=== PATIENT | female | born 1945 | race Caucasian/White ===

== ENCOUNTER 2017-04-24 20:43 | Emergency (ER) | payer MEDICARE, OTHER ==
[~2017-04-24] VITALS: Ht 154.9 cm; Wt 61.0 kg
[~2017-04-24 20:43] MED LIST: DIOV80TA4 PO; EXEN5PEN SQ; GLUCTAB PO; LEXA20TA PO; RANI150 PO; SYNT137T PO
[2017-04-24 20:59] VITALS: BP 164/99; PULSE 98; RESP 18; TEMP 98; O2SAT 95
[2017-04-24] MEDS ORDERED: TRAM50TA PO (21:15)
[2017-04-24] MEDS ORDERED: MEDR5TAB3 PO (21:15)
[2017-04-24] MEDS ORDERED: OMEP20TA PO (21:15)
[2017-04-24] MEDS ORDERED: LEVO75TA3 PO (21:15)
[2017-04-24] MEDS ORDERED: SODIUM CHLOR 0.9% 1000 ML INJ 1,000 ML IV ONE (21:15)
[2017-04-24] MEDS ORDERED: ENAL20TA PO (21:15)
[2017-04-24] MEDS ORDERED: diphenhydrAMINE HCL 50 MG/ML VIAL IV PUSH ONE (21:15)
[2017-04-24] MEDS ORDERED: PROCHLORPERAZINE INJ 10 MG/2 ML VIAL IV PUSH ONE (21:15)
[2017-04-24] MEDS ORDERED: KETOROLAC TROMETHAMINE 30 MG/ML (IVP) VIAL IV PUSH ONE (21:15)
--- NOTE | 2017-04-24 21:43 | RADRPT ---
EXAM DATE/TIME: 04/24/2017 21:27 [facility] COMPARISON: No previous studies available for comparison. INDICATIONS : Cephalgia x1 week. RADIATION DOSE: 32.88 CTDIvol (mGy) MEDICAL HISTORY : Hypertension. Diabetes mellitus type 2. Gastroesophageal reflux disease.Thyroid cancer. SURGICAL HISTORY : Appendectomy. Cholecystectomy.Tonsillectomy. ENCOUNTER: Initial ACUITY: 1 week PAIN SCALE: 10/10 LOCATION: cranial TECHNIQUE: Multiple contiguous axial images were obtained of the head. Using automated exposure control and adj ustment of the mA and/or kV according to patient size, radiation dose was kept as low as reasonably a chievable to obtain optimal diagnostic quality images. FINDINGS: CEREBRUM: The ventricles are normal for age. No evidence of midline shift, mass lesion, hemorrhage or acute in farction. No extra-axial fluid collections are seen. POSTERIOR FOSSA: The cerebellum and brainstem are intact. The 4th ventricle is midline. The cerebellopontine angle i s unremarkable. EXTRACRANIAL: The visualized portion of the orbits is intact. SKULL: The calvaria is intact. No evidence of skull fracture. CONCLUSION: Negative noncontrast head CT. Grey Forbes MD on April 24, 2017 at 21:41 Board Certified Radiologist. This report was verified electronically.
[2017-04-24 21:44] LABS: AUTOMATED NEUTROPHIL # 2.4 TH/MM3 (1.8-7.7); BASOPHIL % 0.4 % (0.0-2.0); EOSINOPHIL % 0.3 % (0.0-4.0); HEMATOCRIT 43.3 % (35.0-46.0); HEMO FLAGS DIFF FINAL; LYMPH % 44.7 % (9.0-44.0); LYMPHOCYTE # 2.6 TH/MM3 (1.0-4.8); MEAN CELL VOLUME 83.8 FL (80.0-100.0); MEAN CORPUSCULAR HEMOGLOBIN 27.8 PG (27.0-34.0); MEAN CORPUSCULAR HGB CONC 33.2 % (32.0-36.0); MONO % 12.4 % (0.0-8.0); NEUT % 42.2 % (16.0-70.0); PLATELET COUNT 187 TH/MM3 (150-450); RED BLOOD COUNT 5.17 MIL/MM3 (4.00-5.30); RED CELL DISTRIBUTION WIDTH 13.7 % (11.6-17.2); WHITE BLOOD COUNT 5.8 TH/MM3 (4.0-11.0)
[2017-04-24 21:57] LABS: ANION GAP 8 MEQ/L (5-15); AST (GOT) 4 U/L (15-37); BICARBONATE 29.1 MEQ/L (21.0-32.0); BLOOD UREA NITROGEN 15 MG/DL (7-18); CHLORIDE 104 MEQ/L (98-107); GLOMERULAR FILTRATION RATE 45 ML/MIN (>89); POTASSIUM 3.3 MEQ/L (3.5-5.1); SODIUM (NA) 141 MEQ/L (136-145)
[2017-04-24 22:02] LABS: ALKALINE PHOSPHATASE 60 U/L (45-117); ALT (GPT) 15 U/L (10-53); TOTAL BILIRUBIN ADULT 0.4 MG/DL (0.2-1.0)
[2017-04-24] MEDS ORDERED: BUTA1CAP PO (22:12)
--- NOTE | 2017-04-24 22:12 | PD ---
HPI Chief Complaint: Headache Time Seen by Provider: 21:03 Travel History International Travel<30 days: No Contact w/Intl Traveler<30days: No Traveled to known affect area: No History of Present Illness HPI Patient is a 71-year-old female who comes in complaining of a right-sided headache. She says she has history of migraines and this one is similar but worse in nature. She says it has been going on for the past week, but got worse today and she feels a stabbing pain in her right taoist. She has been taking tramadol without relief of her pain. But no vomiting. She denies any fevers. She denies any head trauma. She does report being under a lot of stress. PFSH Past Medical History Depression: Yes Cancer: Yes (THYROID) Diabetes: Yes (TYPE 2) Patient Takes Glucophage: No Diminished Hearing: No GERD: Yes Hypertension: Yes Thyroid Disease: Yes (HYPO) Tetanus Vaccination: Unknown Influenza Vaccination: No Menopausal: Yes Past Surgical History Appendectomy: Yes Cholecystectomy: Yes Tonsillectomy: Yes Social History Alcohol Use: No Tobacco Use: No Substance Use: No Allergies-Medications (Allergen,Severity, Reaction): Coded Allergies: No Known Allergies (Verified , 04/24/17) Reported Meds & Prescriptions Reported Meds & Active Scripts Active Reported Tramadol (Tramadol HCl) 50 Mg Tab 50 Mg PO Q6H PRN Omeprazole 20 Mg Tab 20 Mg PO DAILY Medroxyprogesterone Acetate 5 Mg Tab 2.5 Mg PO DAILY Start day 21 Enalapril (Enalapril Maleate) 20 Mg Tab 20 Mg PO BID Levothyroxine (Levothyroxine Sodium) 75 Mcg Tab 75 Mcg PO DAILY Review of Systems Except as stated in HPI: all other systems reviewed are Neg General / Constitutional: No: Fever, Chills HENT: Positive: Headaches Cardiovascular: No: Chest Pain or Discomfort Respiratory: No: Shortness of Breath Gastrointestinal: Positive: Nausea, No: Vomiting, Abdominal Pain Musculoskeletal: No: Edema, Pain Skin: No Rash, No Change in Pigmentation Neurologic: No: Weakness, Dizziness Physical Exam Narrative GENERAL: Awake and alert, in no acute distress. SKIN: Focused skin assessment warm/dry. HEAD: Atraumatic. Normocephalic. EYES: Pupils equal and round. No scleral icterus. Extraocular movements intact. ENT: Mucous membranes pink and moist. NECK: Trachea midline. No JVD. No meningeal signs. CARDIOVASCULAR: Regular rate and rhythm. No murmur appreciated. RESPIRATORY: No accessory muscle use. Clear to auscultation. Breath sounds equal bilaterally. GASTROINTESTINAL: Abdomen soft, non-tender, nondistended. MUSCULOSKELETAL: No obvious deformities. No clubbing. No cyanosis. No edema. NEUROLOGICAL: Awake and alert. No obvious cranial nerve deficits. Motor grossly within normal limits. Normal speech. PSYCHIATRIC: Appropriate mood and affect; insight and judgment normal. Data Data Last Documented VS Vital Signs Date Time Temp Pulse Resp B/P Pulse Ox O2 Delivery O2 Flow Rate FiO2 04/24/17 20:59 98.0 98 18 164/[address] Brain W/O Iv Contrast(Rout) (04/24/17 ) Complete Blood Count With Diff (04/24/17 21:03) Comprehensive Metabolic Panel (04/24/17 21:03) Sodium Chlor 0.9% 1000 Ml Inj (Ns 1000 M (04/24/17 21:15) Prochlorperazine Inj (Compazine Inj) (04/24/17 21:15) Diphenhydramine Inj (Benadryl Inj) (04/24/17 21:15) Ketorolac Inj (Toradol Inj) (04/24/17 21:15) Labs Laboratory Tests Test 04/24/17 21:10 White Blood Count 5.8 TH/MM3 Red Blood Count 5.17 MIL/MM3 Hemoglobin 14.4 GM/DL Hematocrit 43.3 % Mean Corpuscular Volume 83.8 FL Mean Corpuscular Hemoglobin 27.8 PG Mean Corpuscular Hemoglobin 33.2 % Concent Red Cell Distribution Width 13.7 % Platelet Count 187 TH/MM3 Mean Platelet Volume 9.1 FL Neutrophils (%) (Auto) 42.2 % Lymphocytes (%) (Auto) 44.7 % Monocytes (%) (Auto) 12.4 % Eosinophils (%) (Auto) 0.3 % Basophils (%) (Auto) 0.4 % Neutrophils # (Auto) 2.4 TH/MM3 Lymphocytes # (Auto) 2.6 TH/MM3 Monocytes # (Auto) 0.7 TH/MM3 Eosinophils # (Auto) 0.0 TH/MM3 Basophils # (Auto) 0.0 TH/MM3 CBC Comment DIFF FINAL Differential Comment Sodium Level 141 MEQ/L Potassium Level 3.3 MEQ/L Chloride Level 104 MEQ/L Carbon Dioxide Level 29.1 MEQ/L Anion Gap 8 MEQ/L Blood Urea Nitrogen 15 MG/DL Creatinine 1.18 MG/DL Estimat Glomerular Filtration 45 ML/MIN Rate Random Glucose 121 MG/DL Calcium Level 9.4 MG/DL Total Bilirubin 0.4 MG/DL Aspartate Amino Transf 4 U/L (AST/SGOT) Alanine Aminotransferase 15 U/L (ALT/SGPT) Alkaline Phosphatase 60 U/L Total Protein 7.3 GM/DL Albumin 3.9 GM/DL [facility] Medical Decision Making Medical Screen Exam Complete: Yes Emergency Medical Condition: Yes Medical Record Reviewed: Yes Differential Diagnosis Migraine versus tension headache versus dehydration versus electrolyte abnormality Narrative Course Patient is a 71-year-old female who comes in complaining of a migraine headache. Exam shows no neurologic abnormalities. IV established, labs sent. Labs show no acute abnormalities. CT head performed shows no acute abnormalities. Last [address] 04/24/17 0000 Signed Impressions: Service Date/Time: Monday, April 24, 2017 21:27 - CONCLUSION: Negative noncontrast head CT. Grey Forbes MD Patient given IV fluids, Toradol, Compazine, Benadryl. She reports almost complete resolution of her headache. She says she is comfortable going home at this time. Will be discharged with prescription for Fioricet, which she says has helped her in the past. Advised follow-up with her doctor. Advised to return to the ED as needed for any worsening symptoms. Diagnosis Primary Impression: Headache Qualified Code: R51 - Acute nonintractable headache, unspecified headache type Patient Instructions: General Instructions, Migraine Headache (ED) Additional Instructions: Take Fioricet as needed for migraines. Be careful as it may make you drowsy. Follow up with your doctor. Return to the ED as needed for any worsening symptoms. Scripts Csoleqyhil-Iahocxstjfrqb-Juacezsd (Fioricet)50-300-40 Mg Cap1 Cap PO Q4H PRN ( HEADACHE) #15 CAP Ref 0 Prov:Karey King MD 04/24/17 Disposition: 01 DISCHARGE HOME Condition: Stable Karey King MD Apr 24, 2017 22:12
== END 2017-04-24 22:24 | disposition home or self-care (01) ==
LOC: NEPD 20:43
DX: R51 Headache (principal); I10 Essential (primary) hypertension; E11.9 Type 2 diabetes mellitus without complications; Z79.899 Other long term (current) drug therapy
CPT/HCPCS: 70450; 80053; 85025; 96361; 96374; 96375; 99285; J0780; J1200; J1885; J7030

== ENCOUNTER 2017-06-02 14:41 | Observation (INO) | payer MEDICARE ==
[~2017-06-02] VITALS: Ht 154.9 cm; Wt 65.0 kg
[2017-06-02] VITALS (7 sets, daily range): BP systolic 132–170; BP diastolic 67–105; PULSE 82–90; RESP 16–24; TEMP 97.8–98.5; O2SAT 95–99
[~2017-06-02 14:41] MED LIST changes: +BUTA1CAP PO; -DIOV80TA4 PO; +ENAL20TA PO; -EXEN5PEN SQ; -GLUCTAB PO; +LEVO75TA3 PO; -LEXA20TA PO; +MEDR5TAB3 PO; +OMEP20TA PO; -RANI150 PO; -SYNT137T PO; +TRAM50TA PO
[2017-06-02] MEDS ORDERED: ONDANSETRON HCL 4 MG/2 ML VIAL IV PUSH ONE (16:00)
[2017-06-02] MEDS ORDERED: NITROGLYCERIN 0.4 MG SL 25 TABS/BTL SL ONE (16:00)
[2017-06-02] MEDS ORDERED: MORPHINE SULFATE 4 MG/ML INJ IV PUSH ONE ×3 (16:00→17:15)
[2017-06-02] MEDS ORDERED: SODIUM CHLORIDE 0.9% FLUSH 10 ML FLUSH IVF PRN (16:00)
[2017-06-02 16:25] LABS: BASOPHIL % 0.3 % (0.0-2.0); EOSINOPHIL % 0.1 % (0.0-4.0); HEMO FLAGS DIFF FINAL; LYMPH % 25.4 % (9.0-44.0); LYMPHOCYTE # 1.6 TH/MM3 (1.0-4.8); MEAN CORPUSCULAR HEMOGLOBIN 28.5 PG (27.0-34.0); MEAN CORPUSCULAR HGB CONC 33.6 % (32.0-36.0); MONO % 11.7 % (0.0-8.0); NEUT % 62.5 % (16.0-70.0); PLATELET COUNT 191 TH/MM3 (150-450); RED BLOOD COUNT 4.82 MIL/MM3 (4.00-5.30); RED CELL DISTRIBUTION WIDTH 14.2 % (11.6-17.2); WHITE BLOOD COUNT 6.5 TH/MM3 (4.0-11.0)
--- NOTE | 2017-06-02 16:34 | RADRPT ---
EXAM DATE/TIME: 06/02/2017 15:55 [facility] COMPARISON: No previous studies available for comparison. INDICATIONS : Chest pain. MEDICAL HISTORY : Hypertension. SURGICAL HISTORY : Cholecystectomy. ENCOUNTER: Initial ACUITY: 1 day PAIN SCORE: 8/10 LOCATION: Bilateral chest FINDINGS: The lungs are clear without infiltrate, nodule, or mass. There is no appreciable pleural effusion fo r technique. Heart and mediastinum are unremarkable. CONCLUSION: No acute cardiopulmonary disease. Artemio Sauceda MD on June 02, 2017 at 16:17 Board Certified Radiologist. This report was verified electronically.
[2017-06-02 16:35] LABS: APTT (PATIENT) 27.3 SEC (24.3-30.1); PROTHROMBIN TIME - PATIENT 10.8 SEC (9.8-11.6)
[2017-06-02 16:47] LABS: ALT (GPT) 13 U/L (10-53); ANION GAP 9 MEQ/L (5-15); AST (GOT) 5 U/L (15-37); BICARBONATE 29.2 MEQ/L (21.0-32.0); BLOOD UREA NITROGEN 10 MG/DL (7-18); CHLORIDE 103 MEQ/L (98-107); MAGNESIUM 1.5 MG/DL (1.5-2.5); POTASSIUM 3.4 MEQ/L (3.5-5.1); SODIUM (NA) 141 MEQ/L (136-145)
--- NOTE | 2017-06-02 16:54 | PD ---
HPI Chief Complaint: Chest Pain Time Seen by Provider: 16:48 Travel History International Travel<30 days: No Contact w/Intl Traveler<30days: No Traveled to known affect area: No History of Present Illness HPI 72-year-old female that presents to the ED for evaluation of chest pain that radiates to the back. Per patient she's had this since around 12:00 today. Patient comes by ambulance for evaluation of this. She states that the pain is severe and sharp and pressure-like. No history of this in the past. No history of heart disease. She does have a history of hypertension and per patient she is to be diabetic but not anymore. She takes no blood thinners. She was given nitroglycerin and aspirin by ambulance. She reports the pain is severe 8 out of 10. No history of aneurysms. No history of cough or runny nose. Per patient she does have diaphoresis. Denies any fevers chills or sweats. No abdominal pain. No urinary or bowel movement issues. Pain is mainly to the left side to the left back. Allergies to eggs. No family history of heart disease. No arm or leg pain. No radiation of the pain other than to the back. She does have a history of prior cancer and takes thyroid medication. PFSH Past Medical History Depression: Yes Cancer: Yes (THYROID) Cardiovascular Problems: Yes (HTN ) Diabetes: No Diminished Hearing: No GERD: Yes Hypertension: Yes Immunizations Current: Yes Thyroid Disease: Yes (HYPO) Tetanus Vaccination: Unknown Influenza Vaccination: No (ALLERGIC TO EGGS ) ?: Not Menopausal: Yes Past Surgical History Appendectomy: Yes Cholecystectomy: Yes Tonsillectomy: Yes Other Surgery: Yes (THYROIDECTOMY ) Social History Alcohol Use: No Tobacco Use: No (QUIT ) Substance Use: No Allergies-Medications (Allergen,Severity, Reaction): Coded Allergies: Egg Allergy (Verified Allergy, Unknown, 06/02/17) Reported Meds & Prescriptions Reported Meds & Active Scripts Active Fioricet (Bgrarjkghr-Gunroseshbfzw-Pdfcrtst) 50-300-40 Mg Cap 1 Cap PO Q4H PRN Reported Omeprazole 20 Mg Tab 20 Mg PO DAILY Enalapril (Enalapril Maleate) 20 Mg Tab 20 Mg PO BID Levothyroxine (Levothyroxine Sodium) 75 Mcg Tab 75 Mcg PO DAILY Review of Systems Except as stated in HPI: all other systems reviewed are Neg Physical Exam Narrative GENERAL: SKIN: Warm and dry. HEAD: Atraumatic. Normocephalic. EYES: Pupils equal and round. No scleral icterus. No injection or drainage. ENT: No nasal bleeding or discharge. Mucous membranes pink and moist. Tongue is midline. No uvula deviation. NECK: Trachea midline. No JVD. CARDIOVASCULAR: Regular rate and rhythm. No murmurs, S3, S4. Chest is not reproducible with touch. RESPIRATORY: No accessory muscle use. Clear to auscultation. Breath sounds equal bilaterally. GASTROINTESTINAL: Abdomen soft, non-tender, nondistended. Hepatic and splenic margins not palpable. MUSCULOSKELETAL: Extremities without clubbing, cyanosis, or edema. No obvious deformities. Full range of motion of the upper and lower extremities bilaterally. 2+ pulses bilaterally. NEUROLOGICAL: Awake and alert. No obvious cranial nerve deficits. Motor grossly within normal limits. Five out of 5 muscle strength in the arms and legs. Normal speech. PSYCHIATRIC: Appropriate mood and affect; insight and judgment normal. Data Data Last Documented VS Vital Signs Date Time Temp Pulse Resp B/P Pulse Ox O2 Delivery O2 Flow Rate FiO2 06/02/17 16:08 84 132/93 06/02/17 16:08 18 98 06/02/17 16:08 Room Air 06/02/17 15:52 98.5 Orders Electrocardiogram (06/02/17 ) Ckmb (Isoenzyme) Profile (06/02/17 15:54) Complete Blood Count With Diff (06/02/17 15:54) Comprehensive Metabolic Panel (06/02/17 15:54) Magnesium (Mg) (06/02/17 15:54) Prothrombin Time / Inr (Pt) (06/02/17 15:54) Act Partial Throm Time (Ptt) (06/02/17 15:54) Troponin I (06/02/17 15:54) Lipase (06/02/17 15:54) Chest, Single Ap (06/02/17 15:54) Ecg Monitoring (06/02/17 15:54) Bilateral Bp Monitoring (06/02/17 15:54) Iv Access Insert/Monitor (06/02/17 15:54) Oximetry (06/02/17 15:54) Oxygen Administration (06/02/17 15:54) Sodium Chloride 0.9% Flush (Ns Flush) (06/02/17 16:00) Nitroglycerin Sl (Nitrostat Sl) (06/02/17 16:00) Morphine Inj (Morphine Inj) (06/02/17 16:00) Ondansetron Inj (Zofran Inj) (06/02/17 16:00) Thyroid Stimulating Hormone (06/02/17 15:54) B-Type Natriuretic Peptide (06/02/17 16:10) Morphine Inj (Morphine Inj) (06/02/17 16:30) Morphine Inj (Morphine Inj) (06/02/17 17:15) Admit Order (Ed Use Only) (06/02/17 18:04) Activity Bed Rest With Brp (06/02/17 18:06) Vital Signs (Adult) Q4H (06/02/17 18:06) Cardiac Rhythm .As Directed (06/02/17 18:06) Labs Laboratory Tests Test 06/02/17 16:00 White Blood Count 6.5 TH/MM3 Red Blood Count 4.82 MIL/MM3 Hemoglobin 13.8 GM/DL Hematocrit 41.0 % Mean Corpuscular Volume 85.0 FL Mean Corpuscular Hemoglobin 28.5 PG Mean Corpuscular Hemoglobin 33.6 % Concent Red Cell Distribution Width 14.2 % Platelet Count 191 TH/MM3 Mean Platelet Volume 8.6 FL Neutrophils (%) (Auto) 62.5 % Lymphocytes (%) (Auto) 25.4 % Monocytes (%) (Auto) 11.7 % Eosinophils (%) (Auto) 0.1 % Basophils (%) (Auto) 0.3 % Neutrophils # (Auto) 4.0 TH/MM3 Lymphocytes # (Auto) 1.6 TH/MM3 Monocytes # (Auto) 0.8 TH/MM3 Eosinophils # (Auto) 0.0 TH/MM3 Basophils # (Auto) 0.0 TH/MM3 CBC Comment DIFF FINAL Differential Comment Prothrombin Time 10.8 SEC Prothromb Time International 1.0 RATIO Ratio Activated Partial 27.3 SEC Thromboplast Time Sodium Level 141 MEQ/L Potassium Level 3.4 MEQ/L Chloride Level 103 MEQ/L Carbon Dioxide Level 29.2 MEQ/L Anion Gap 9 MEQ/L Blood Urea Nitrogen 10 MG/DL Creatinine 1.06 MG/DL Estimat Glomerular Filtration 51 ML/MIN Rate Random Glucose 92 MG/DL Calcium Level 9.4 MG/DL Magnesium Level 1.5 MG/DL Total Bilirubin 0.4 MG/DL Aspartate Amino Transf 5 U/L (AST/SGOT) Alanine Aminotransferase 13 U/L (ALT/SGPT) Alkaline Phosphatase 71 U/L Total Creatine Kinase 24 U/L Troponin I LESS THAN 0.02 NG/ML B-Type Natriuretic Peptide 16 PG/ML Total Protein 7.4 GM/DL Albumin 4.0 GM/DL Lipase 90 U/L Thyroid Stimulating Hormone 5.710 uIU/ML 3rd Gen [facility] Medical Decision Making Medical Screen Exam Complete: Yes Emergency Medical Condition: Yes Medical Record Reviewed: Yes Interpretation(s) CBC Diagram 06/02/17 16:00 Last Impressions Chest X-Ray 06/02/17 1554 Signed Impressions: Service Date/Time: Monday, June 02, 2017 15:55 - CONCLUSION: No acute cardiopulmonary disease. Artemio Sauceda MD EKG shows sinus rhythm with no sign of acute ischemia or arrhythmia. Read by me and attending. BMP Diagram 06/02/17 16:00 LFTs and lipase within normal limits. Coags within normal limits. Differential Diagnosis Chest pain versus atypical chest pain versus ACS versus pneumonia versus gastritis versus pancreatitis versus anxiety Narrative Course 72-year-old female that presents to the ED for evaluation of chest pain. Patient was properly examined and was found to have signs and symptoms of unclear etiology. Concern for cardiac disease. Labs and imaging ordered. Labs and imaging showed no sign of acute disease. Patient was given morphine with some relief. Unclear etiology of the chest pain but there is definite concern for ACS. Patient has no history of ACS in the past. She is had a stress test but this was done years ago. She does have risk factors including high blood pressure, diabetes and age. Case discussed in my attending who agrees with plan. Patient admitted to the chest pain center for further chest pain workup. Diagnosis Primary Impression: Chest pain in adult Admitting Information Admitting Physician Requests: Observation Julio Magdaleno Jun 02, 2017 16:54
[2017-06-02 16:57] LABS: ALKALINE PHOSPHATASE 71 U/L (45-117); GLOMERULAR FILTRATION RATE 51 ML/MIN (>89); TOTAL BILIRUBIN ADULT 0.4 MG/DL (0.2-1.0)
[2017-06-02 17:02] LABS: CREATINE KINASE 24 U/L (26-192)
[2017-06-02] MEDS ORDERED: ACETAMINOPHEN 500 MG CPLT PO PRN (18:15)
[2017-06-02] MEDS ORDERED: ACETAMINOPHEN/HYDROcodone 325 MG/7.5 MG TAB PO PRN (18:15)
[2017-06-02] MEDS ORDERED: MORPHINE SULFATE 4 MG/ML INJ IV PRN (18:15)
[2017-06-02] MEDS ORDERED: SODIUM CHLORIDE 0.9% FLUSH 10 ML FLUSH IV FLUSH PRN (18:15)
[2017-06-02] MEDS ORDERED: MORPHINE SULFATE 8 MG/ML INJ IV PUSH PRN (18:45)
[2017-06-02 20:21] LABS: CREATINE KINASE 23 U/L (26-192)
[2017-06-02] MEDS: SODIUM CHLORIDE 0.9% FLUSH 10 ML FLUSH IV FLUSH SCH (22:46)
[2017-06-02] MEDS: ONDANSETRON HCL 4 MG/2 ML VIAL IV PRN (22:46)
[2017-06-02 23:22] LABS: CREATINE KINASE 24 U/L (26-192)
[2017-06-03] MEDS: SODIUM CHLORIDE 0.9% FLUSH 10 ML FLUSH IV FLUSH SCH (01:00)
[2017-06-03 04:05] VITALS: BP 141/73; PULSE 86; RESP 18; TEMP 98; O2SAT 96
[2017-06-03 04:08] VITALS: PULSE 75
[2017-06-03 04:13] VITALS: PULSE 80
[2017-06-03] MEDS ORDERED: LEVOTHYROXINE SODIUM 75 MCG TAB PO SCH (08:00)
[2017-06-03] MEDS ORDERED: TRAM50TA PO (08:17)
--- NOTE | 2017-06-03 08:20 | HHI.HP ---
HPI Primary Care Physician Lucille Turner Chief Complaint Chest pain History of Present Illness 72-year-old female with history of hypertension, hypothyroidism, migraines, GERD , and history diabetes type 2 presents to emergency room for further evaluation of chest pain. Onset yesterday at noon. Location substernal. Characterized as someone sitting on her chest. Radition of a stabbing pain to her back. Duration has been constant waxing and waning in intensity. Associated symptoms included nausea and feeling short of breath. No particular movement, position, or deep breathing makes pain better or worse. Denies similar pain in the past. No known precipitating factors. Relieving factors pain medication helped "somewhat but pain has never gone completely away." Last time eating prior to chest pain was 9 AM. Review of Systems General: No fatigue,weakness, fever, chills, or recent illness. Has been in her general state of health. HEENT: History of migraines, current complains of a headache after dose of nitro given in ED. She has been on multiple migraine medications and medications helped for only a short time. Currently she takes Ultram 50 mg every 6 hours as needed for migraine. No vision changes, nasal congestion, or drainage. History of GERD, report sometimes acid reflux so bad she has dysphasia lasting the whole day. CV: As stated above. Continues to have chest pressure/heaviness. No palpitations, intermittent leg pain, or dizziness. No personal history of coronary artery disease. RESP: No SOB, cough, wheeze, recent URI, or history of asthma. Formal smoker, quit 2004. GI: Current nausea, reports unsure if nausea from pain medication given or current headache. No vomiting, bowel changes, diarrhea, constipation, pain, distention, melena, or blood in the stool. : No dysuria, urgency, frequency, frequent UTIs, or history of kidney stones EXT: No lower leg edema, no paraesthesias MS: No discomfort or change in ROM NEURO: No difficulty with balance, LOC, motor/sensory deficits PSYCH: No anxiety, depression, or situational stress. SKIN: No rashes, no concerning lesions. Past Family Social History Allergies: Coded Allergies: Egg Allergy (Verified Allergy, Unknown, 06/02/17) Past Medical History Hypothyroidism, hypertension, migraines, type 2 diabetes(diet controlled), GERD Past Surgical History Appendectomy, cholecystectomy, thyroidectomy, parathyroidectomy, tonsillectomy, cataracts Reported Medications Active Reported Tramadol (Tramadol HCl) 50 Mg Tab 50 Mg PO Q6HR Omeprazole 20 Mg Tab 20 Mg PO DAILY Enalapril (Enalapril Maleate) 20 Mg Tab 20 Mg PO BID Levothyroxine (Levothyroxine Sodium) 75 Mcg Tab 75 Mcg PO DAILY Active Ordered Medications Current Medications Medications (Trade) Dose Ordered Sig/Kirit Route Start Time Stop Time Status Last Admin (Tylenol) 500 mg Q4H PRN PO 06/02/17 18:15 (Gardena 7.5-325 Mg) 1 tab Q4H PRN PO 06/02/17 18:15 06/02/17 23:46 (Zofran Inj) 4 mg Q6H PRN IV 06/02/17 18:15 06/02/17 22:46 (Morphine Inj) 2 mg Q4H PRN IV PUSH 06/02/17 18:45 (Synthroid) 75 mcg DAILY@06 PO 06/03/17 08:00 06/03/17 08:18 Family History Unknown Social History Known hypertension and diabetes. Diabetes currently diet controlled. No known hyperlipidemia. Former smoker, quit 2004 (half pack/daily). Rare social alcohol. Denies recreational drug use. Retired. Occasionally volunteers with hospice. Endorses sedentary lifestyle. Past cardiac testing No recent cardiac testing. Chemical stress test "years ago" for routine cardiac workup with . Chemical test unremarkable. Physical Exam Vital Signs Vital Signs Date Time Temp Pulse Resp B/P Pulse Ox O2 Delivery O2 Flow Rate FiO2 06/03/17 04:13 80 06/03/17 04:08 75 06/03/17 04:05 98.0 86 18 141/73 96 06/03/17 01:00 16 06/02/17 23:51 97.8 86 16 170/83 97 06/02/17 21:08 98.2 84 18 151/67 98 06/02/17 20:21 86 20 136/89 98 Room Air 06/02/17 19:42 95 06/02/17 19:00 88 24 145/105 99 Room Air 06/02/17 16:08 84 132/93 06/02/17 16:08 82 18 132/93 98 06/02/17 16:08 96 Room Air 06/02/17 15:52 100 Room Air 06/02/17 15:52 98.5 90 21 161/94 97 06/02/17 15:52 90 161/94 Physical Exam GENERAL: Alert WN, WD, NAD, pleasant, female HEAD: NC, AT EYES: Sclera clear, conjunctiva without injection, pupils equal and round ENT: Mucous membranes pink and moist NECK: Supple, no masses, trachea midline CV: RRR, without murmur, rub, gallop, no JVD, S1-S2 no S3-S4. No carotid bruits. RESP: Clear lungs throughout bilateral, no crackles, wheeze, rhonchi, symmetrical chest rise, nonlabored, able to speak in full sentences ABD: Soft, NT, ND, no masses, positive bowel tones BACK: No CVAT, no scoliosis EXT: Pulses +24, no dependent edema MS: Normal tone 4 extremities, nontender, no obvious deformities, full range of motion NEURO: CN II through CN XII grossly intact, motor strength 5/5, gait WNL PSYCH: A+O 3, pleasant affect, appropriate speech, appropriate mood and affect , insight and judgment SKIN: Normal turgor, normal texture, no lesions, no rashes Laboratory Laboratory Tests Test 06/02/17 06/02/17 06/02/17 16:00 19:32 22:30 White Blood Count 6.5 Red Blood Count 4.82 Hemoglobin 13.8 Hematocrit 41.0 Mean Corpuscular Volume 85.0 Mean Corpuscular Hemoglobin 28.5 Mean Corpuscular Hemoglobin 33.6 Concent Red Cell Distribution Width 14.2 Platelet Count 191 Mean Platelet Volume 8.6 Neutrophils (%) (Auto) 62.5 Lymphocytes (%) (Auto) 25.4 Monocytes (%) (Auto) 11.7 Eosinophils (%) (Auto) 0.1 Basophils (%) (Auto) 0.3 Neutrophils # (Auto) 4.0 Lymphocytes # (Auto) 1.6 Monocytes # (Auto) 0.8 Eosinophils # (Auto) 0.0 Basophils # (Auto) 0.0 CBC Comment DIFF FINAL Differential Comment Prothrombin Time 10.8 Prothromb Time International 1.0 Ratio Activated Partial 27.3 Thromboplast Time Sodium Level 141 Potassium Level 3.4 Chloride Level 103 Carbon Dioxide Level 29.2 Anion Gap 9 Blood Urea Nitrogen 10 Creatinine 1.06 Estimat Glomerular Filtration 51 Rate Random Glucose 92 Calcium Level 9.4 Magnesium Level 1.5 Total Bilirubin 0.4 Aspartate Amino Transf 5 (AST/SGOT) Alanine Aminotransferase 13 (ALT/SGPT) Alkaline Phosphatase 71 Total Creatine Kinase 24 23 24 Troponin I LESS THAN 0.02 LESS THAN 0.02 LESS THAN 0.02 B-Type Natriuretic Peptide 16 Total Protein 7.4 Albumin 4.0 Lipase 90 Thyroid Stimulating Hormone 5.710 3rd Gen Result Diagram: 06/02/17 1600 06/02/17 1600 Imaging Last Impressions Chest X-Ray 06/02/17 1554 Signed Impressions: Service Date/Time: Friday, June 02, 2017 15:55 - CONCLUSION: No acute cardiopulmonary disease. Artemio Sauceda MD Course EKGs Normal sinus rhythm, incomplete right bundle branch block Assessment and Plan Assessment and Plan #! Atypical chest painadmitted to chest pain center. Ruled out with serial EKGs, cardiac enzymes, and monitored overnight. Seen and evaluated by Dr. Hogue. Reassurance provided, no further cardiac testing at this time. #2 Migrainecontinue Ultram x1 dose now, encouraged her to speak with her PCP regarding a referral to a neurologist and/or taking prophylactic migraine medication. #3 Hypertensioncontinue enalapril, following a low sodium diet #4 NauseaZofran 4 mg IV 1 dose now prescription for Zofran 4 mg 3 times a day when necessary for accompanied nausea with migraine headache #5 GERDcontinue omeprazole, speak with PCP regarding GI referral to evaluate intermittent dysphasia as well as current symptoms may be GI related Yamileth Lott Jun 03, 2017 08:20
[2017-06-03 08:30] VITALS: BP 161/74; PULSE 81; RESP 19; TEMP 98.6; O2SAT 95
[2017-06-03 08:37] VITALS: PULSE 92
[2017-06-03 08:38] VITALS: PULSE 89
[2017-06-03] MEDS ORDERED: traMADol HCL 50 MG TAB PO ONE (08:45)
[2017-06-03] MEDS ORDERED: PANTOPRAZOLE SOD 20 MG DELAYED RELEASE TAB PO SCH (09:00)
[2017-06-03] MEDS ORDERED: ENALAPRIL MALEATE 10 MG TAB PO SCH (09:00)
[2017-06-03] MEDS ORDERED: ONDA1TAB17 PO (09:32)
--- NOTE | 2017-06-03 09:33 | HHI.DCPOC ---
Discharge Care Plan Diagnosis: (1) Atypical chest pain (2) GERD (gastroesophageal reflux disease) (3) Migraine equivalent (4) Nausea Goals to Promote Your Health * To prevent worsening of your condition and complications * To maintain your health at the optimal level Directions to Meet Your Goals Take your medications as prescribed Follow your dietary instruction Follow activity as directed Keep your appointments as scheduled Take your immunizations and boosters as scheduled If your symptoms worsen call your PCP, if no PCP go to Urgent Care Center or Emergency Room Smoking is Dangerous to Your Health. Avoid second hand smoke Call the 24-hour hour crisis hotline for domestic abuse at Yamileth Lott Jun 03, 2017 09:33
--- NOTE | 2017-06-03 09:36 | PD.CARD.PN ---
Subjective Subjective Remarks CARDIOLOGY ATTENDING NOTE P[T REVIEWED AND EXAMINED WITH RESIDENTIAL SOLAR SALES CONSULTANT HPI: RECORDED. VERY ATYPICAL CP, CENTRAL CHEST HEAVINESS WHICH IS CONSTANT AND HAS CONTINUED FOR MANY HOURS ALTHOUGH RELIEVED BY PAIN MEDS. SHE HAS NO SOB , DIAPHORESIS OR RELATED SX OTHER THAN NAUSEA. PAIN RADIATED WITH STABBING TO HER BACK. SHE HAS HX OF GERD AND OCCASIONAL EPISODES OF DYSPHAGIA. DM, LIPIDS, THYROID AND RECURRING MIGRAINE POORLY CONTROLLED O: HEENT GAB, EOMI, BILATERAL IOL NECK NO JVD MASSES NODES OR BRUITS CHEST DEC BS WITHOUT RWR CV RSR NO GRM ABD NON TENDER ON GR EXT NO CCE LAB NEG X 3 CXR NEG EKG NEG X 3 A; HAS RO FOR ACS NON CARDIAC CP MOST LIKELY GI. P: OK TO HOME AND FU WITH PCP. ASLO SUGGEST SPECIALTY EVALUATION FOR GI AND HEADACHES. DISCUSSED WITH PT. Objective Vital Signs / I&O Vital Signs Date Time Temp Pulse Resp B/P Pulse Ox O2 Delivery O2 Flow Rate FiO2 06/03/17 04:13 80 06/03/17 04:08 75 06/03/17 04:05 98.0 86 18 141/73 96 06/03/17 01:00 16 06/02/17 23:51 97.8 86 16 170/83 97 06/02/17 21:08 98.2 84 18 151/67 98 06/02/17 20:21 86 20 136/89 98 Room Air 06/02/17 19:42 95 06/02/17 19:00 88 24 145/105 99 Room Air 06/02/17 16:08 84 132/93 06/02/17 16:08 82 18 132/93 98 06/02/17 16:08 96 Room Air 06/02/17 15:52 100 Room Air 06/02/17 15:52 98.5 90 21 161/94 97 06/02/17 15:52 90 161/94 I/O 06/02/17 06/02/17 06/02/17 06/03/17 06/03/17 06/03/17 06:59 14:59 22:59 06:59 14:59 22:59 Intake Total 240 ml Balance 240 ml Intake Oral Supplement 240 ml Laboratory Laboratory Tests Test 06/02/17 06/02/17 06/02/17 16:00 19:32 22:30 White Blood Count 6.5 TH/MM3 Red Blood Count 4.82 MIL/MM3 Hemoglobin 13.8 GM/DL Hematocrit 41.0 % Mean Corpuscular Volume 85.0 FL Mean Corpuscular Hemoglobin 28.5 PG Mean Corpuscular Hemoglobin 33.6 % Concent Red Cell Distribution Width 14.2 % Platelet Count 191 TH/MM3 Mean Platelet Volume 8.6 FL Neutrophils (%) (Auto) 62.5 % Lymphocytes (%) (Auto) 25.4 % Monocytes (%) (Auto) 11.7 % Eosinophils (%) (Auto) 0.1 % Basophils (%) (Auto) 0.3 % Neutrophils # (Auto) 4.0 TH/MM3 Lymphocytes # (Auto) 1.6 TH/MM3 Monocytes # (Auto) 0.8 TH/MM3 Eosinophils # (Auto) 0.0 TH/MM3 Basophils # (Auto) 0.0 TH/MM3 CBC Comment DIFF FINAL Differential Comment Prothrombin Time 10.8 SEC Prothromb Time International 1.0 RATIO Ratio Activated Partial 27.3 SEC Thromboplast Time Sodium Level 141 MEQ/L Potassium Level 3.4 MEQ/L Chloride Level 103 MEQ/L Carbon Dioxide Level 29.2 MEQ/L Anion Gap 9 MEQ/L Blood Urea Nitrogen 10 MG/DL Creatinine 1.06 MG/DL Estimat Glomerular Filtration 51 ML/MIN Rate Random Glucose 92 MG/DL Calcium Level 9.4 MG/DL Magnesium Level 1.5 MG/DL Total Bilirubin 0.4 MG/DL Aspartate Amino Transf 5 U/L (AST/SGOT) Alanine Aminotransferase 13 U/L (ALT/SGPT) Alkaline Phosphatase 71 U/L Total Creatine Kinase 24 U/L 23 U/L 24 U/L Troponin I LESS THAN 0.02 LESS THAN 0.02 LESS THAN 0.02 NG/ML NG/ML NG/ML B-Type Natriuretic Peptide 16 PG/ML Total Protein 7.4 GM/DL Albumin 4.0 GM/DL Lipase 90 U/L Thyroid Stimulating Hormone 5.710 uIU/ML 3rd Gen Guru Hogue MD Jun 03, 2017 09:35
--- NOTE | 2017-06-03 10:13 | EKG ---
Date Performed: 06/02/2017 Time Performed: 19:37:50 PTAGE: 72 years EKG: Sinus rhythm INCOMPLETE RIGHT BUNDLE BRANCH BLOCK NONSPECIFIC T-WAVE ABNORMALITY BORDERLINE ECG NO SIG CHANGE PREVIOUS TRACING : 06/02/2017 15.55 DOCTOR: Guru Hogue Interpretating Date/Time 06/03/2017 10:11:45
--- NOTE | 2017-06-03 10:14 | EKG ---
Date Performed: 06/02/2017 Time Performed: 15:55:34 PTAGE: 72 years EKG: Sinus rhythm INCOMPLETE RIGHT BUNDLE BRANCH BLOCK NONSPECIFIC ST & T-WAVE ABNORMALITY BORDERLINE ECG NO SIG CALERO Ruddy PREVIOUS TRACING : 05/04/2001 14.48 DOCTOR: Guru Hogue Interpretating Date/Time 06/03/2017 10:13:09
--- NOTE | 2017-06-03 10:14 | EKG ---
Date Performed: 06/02/2017 Time Performed: 22:11:17 PTAGE: 72 years EKG: Sinus rhythm POSSIBLE RIGHT VENTRICULAR CONDUCTION DELAY BORDERLINE ECG NO SIG CHANGE PREVIOUS TRACING : 06/02/2017 19.37 DOCTOR: Guru Hogue Interpretating Date/Time 06/03/2017 10:14:15
[2017-06-03] MEDS: ONDANSETRON HCL 4 MG/2 ML VIAL IV PRN (10:40)
== END 2017-06-03 14:16 | disposition home or self-care (01) ==
LOC: NEPC 14:41 → NEDA 18:06 → NEPHCDU 20:59
PROVIDERS: ADMIT Internal Medicine Cardiovascular Disease; ATTEND Internal Medicine Cardiovascular Disease
DX: R07.89 Other chest pain (principal); G43.909 Migraine, unspecified, not intractable, without status migrainosus; I10 Essential (primary) hypertension; R11.0 Nausea; K21.9 Gastro-esophageal reflux disease without esophagitis; E03.9 Hypothyroidism, unspecified; E11.9 Type 2 diabetes mellitus without complications; R06.02 Shortness of breath; I45.10 Unspecified right bundle-branch block; R13.10 Dysphagia, unspecified; R61 Generalized hyperhidrosis; F32.9 Major depressive disorder, single episode, unspecified; Z79.899 Other long term (current) drug therapy; Z87.891 Personal history of nicotine dependence
CPT/HCPCS: 71010; 80053; 82550; 83690; 83735; 83880; 84443; 84484; 85025; 85610; 85730; 93005; 96374; 99285; G0378; J2270; J2405

== ENCOUNTER 2017-09-14 14:24 | Emergency (ER) | payer MEDICARE ==
[~2017-09-14] VITALS: Ht 154.9 cm; Wt 60.0 kg
[~2017-09-14 14:24] MED LIST changes: -BUTA1CAP PO; -MEDR5TAB3 PO; +ONDA1TAB17 PO
[2017-09-14 14:35] VITALS: BP 120/62; PULSE 62; RESP 16; TEMP 98.4; O2SAT 98
[2017-09-14] MEDS ORDERED: SODIUM CHLORIDE 0.9% FLUSH 10 ML FLUSH IVF PRN ×2 (14:45)
[2017-09-14 14:46] VITALS: RESP 16; O2SAT 98
[2017-09-14] MEDS ORDERED: ENAL20TA PO ×2 (14:46)
--- NOTE | 2017-09-14 14:46 | PD ---
HPI Chief Complaint: Syncope/Near-Syncope Time Seen by Provider: 14:42 Travel History International Travel<30 days: No Contact w/Intl Traveler<30days: No Traveled to known affect area: No History of Present Illness HPI Patient comes emergency Department after having a near syncopal episode while at the grocery store today. Patient was reportedly standing in line when she got lightheaded and almost passed out. Patient denies any chest pain, shortness of breath, headaches, fevers, nausea, vomiting, loss change in bowel or bladder, or being on any blood thinners. Patient reportedly was found to be hypotensive on arrival with a blood pressure of 88/66 and orthostatic on arrival by firefighters and EMS. Patient initially refused transportation however after her blood pressure Dropping when going from sitting to standing was agreeable to come in for evaluation. Patient does report a 20 pound intentional weight loss. Patient denies any symptoms currently. Patient has received almost 1 L of fluid by EMS en route. PFSH Past Medical History Depression: Yes Heart Rhythm Problems: No Cancer: Yes (THYROID) Cardiac Catheterization: No Cardiovascular Problems: Yes (HTN ) High Cholesterol: No Congestive Heart Failure: No Diabetes: No Diminished Hearing: No GERD: Yes Hypertension: Yes Immunizations Current: Yes Thyroid Disease: Yes (HYPO) Menopausal: Yes Past Surgical History Appendectomy: Yes Cholecystectomy: Yes Coronary Artery Bypass Graft: No Tonsillectomy: Yes Other Surgery: Yes (THYROIDECTOMY ) Social History Alcohol Use: No Tobacco Use: No (QUIT ) Substance Use: No Allergies-Medications (Allergen,Severity, Reaction): Coded Allergies: egg (Unverified Allergy, Unknown, 09/14/17) Reported Meds & Prescriptions Reported Meds & Active Scripts Active Reported Enalapril (Enalapril Maleate) 20 Mg Tab 40 Mg PO DAILY Levothyroxine (Levothyroxine Sodium) 75 Mcg Tab 75 Mcg PO DAILY Review of Systems Except as stated in HPI: all other systems reviewed are Neg Physical Exam Narrative GENERAL: Well-developed, well nourished, in no acute distress, and non-ill appearing. SKIN: Focused skin assessment warm and dry. HEAD: Atraumatic. Normocephalic. EYES: Pupils equal and round. EOMI. No scleral icterus. No injection or drainage. ENT: No nasal bleeding or discharge. Mucous membranes pink and moist. NECK: Trachea midline. No JVD. Supple. No nuclear rigidity. CARDIOVASCULAR: Regular rate and rhythm. No murmur appreciated. RESPIRATORY: No accessory muscle use. No respiratory distress. Clear to auscultation. Breath sounds equal bilaterally. GASTROINTESTINAL: Abdomen soft, non-tender, nondistended, and no guarding. Hepatic and splenic margins not palpable. Normal bowel sounds 4. No pulsatile mass. MUSCULOSKELETAL: No obvious deformities. No clubbing. No cyanosis. No edema. Full range of motion. NEUROLOGICAL: Awake and alert. No obvious cranial nerve deficits. Motor grossly within normal limits. Normal speech. PSYCHIATRIC: Appropriate mood and affect; insight and judgment normal. Data Data Last Documented VS Vital Signs Date Time Temp Pulse Resp B/P (MAP) Pulse Ox O2 Delivery O2 Flow Rate FiO2 09/14/17 15:29 78 18 139/66 (90) 83 18 123/61 (81) 88 18 125/61 (82) 09/14/17 14:46 98 Room Air 09/14/17 14:35 98.4 Orders Orders Electrocardiogram (09/14/17 14:42) Basic Metabolic Panel (Bmp) (09/14/17 14:42) Complete Blood Count With Diff (09/14/17 14:42) Magnesium (Mg) (09/14/17 14:42) Ckmb (Isoenzyme) Profile (09/14/17 14:42) Troponin I (09/14/17 14:42) Act Partial Throm Time (Ptt) (09/14/17 14:42) Prothrombin Time / Inr (Pt) (09/14/17 14:42) Urinalysis - C+S If Indicated (09/14/17 14:42) Ct Brain W/O Iv Contrast(Rout) (09/14/17 14:42) Ecg Monitoring (09/14/17 14:42) Iv Access Insert/Monitor (09/14/17 14:42) Oximetry (09/14/17 14:42) Sodium Chloride 0.9% Flush (Ns Flush) (09/14/17 14:45) Orthostatic Vital Signs (09/14/17 14:42) Ed Discharge Order (09/14/17 17:24) Labs Laboratory Tests Test 09/14/17 15:06 09/14/17 16:37 White Blood Count 5.8 TH/MM3 Red Blood Count 5.55 MIL/MM3 Hemoglobin 15.5 GM/DL Hematocrit 46.9 % Mean Corpuscular Volume 84.6 FL Mean Corpuscular Hemoglobin 27.9 PG Mean Corpuscular Hemoglobin Concent 33.0 % Red Cell Distribution Width 13.3 % Platelet Count 144 TH/MM3 Mean Platelet Volume 9.8 FL Neutrophils (%) (Auto) 74.7 % Lymphocytes (%) (Auto) 17.5 % Monocytes (%) (Auto) 7.5 % Eosinophils (%) (Auto) 0.1 % Basophils (%) (Auto) 0.2 % Neutrophils # (Auto) 4.4 TH/MM3 Lymphocytes # (Auto) 1.0 TH/MM3 Monocytes # (Auto) 0.4 TH/MM3 Eosinophils # (Auto) 0.0 TH/MM3 Basophils # (Auto) 0.0 TH/MM3 CBC Comment DIFF FINAL Differential Comment Prothrombin Time 13.0 SEC Prothromb Time International Ratio 1.2 RATIO Activated Partial Thromboplast Time 26.9 SEC Blood Urea Nitrogen 14 MG/DL Creatinine 1.25 MG/DL Random Glucose 87 MG/DL Calcium Level 8.5 MG/DL Magnesium Level 1.6 MG/DL Sodium Level 139 MEQ/L Potassium Level 3.4 MEQ/L Chloride Level 106 MEQ/L Carbon Dioxide Level 18.7 MEQ/L Anion Gap 14 MEQ/L Estimat Glomerular Filtration Rate 42 ML/MIN Total Creatine Kinase 30 U/L Troponin I 0.02 NG/ML Urine Color LIGHT-YELLOW Urine Turbidity CLEAR Urine pH 6.0 Urine Specific [place] 1.008 Urine Protein TRACE mg/dL Urine Glucose (UA) NEG mg/dL Urine Ketones 80 mg/dL Urine Occult Blood NEG Urine Nitrite NEG Urine Bilirubin NEG Urine Urobilinogen LESS THAN 2.0 MG/DL Urine Leukocyte Esterase MOD Urine RBC 1 /hpf Urine WBC 3 /hpf Urine Squamous Epithelial Cells 1 /hpf Urine Hyaline Casts 3 /lpf Urine Mucus FEW /lpf Microscopic Urinalysis Comment CULT NOT INDICATED MDM Medical Decision Making Medical Screen Exam Complete: Yes Emergency Medical Condition: Yes Interpretation(s) EKG reviewed by Dr. Stein shows sinus rhythm with ventricular rate of 83. No STEMI. Differential Diagnosis Syncope, near syncope, orthostatic, acute coronary syndrome, TIA, CVA, other Narrative Course Patient presented with dizziness described best as near syncope. There was no true syncope. It appears clinically due to volume depletion. The patient denied any symptoms of chest pain, SOB/difficulty breathing, palpitations or skipped heartbeats. The patient denied and headache. The patient denied any bloody or tarry stools. The patient has no significant risk factors and no significant co- morbidities. There was no evidence to suggest neurologic or cardiac etiology or GIB. The diagnosis and findings were discussed with the patient and the patient was instructed to follow up with their primary physician. Patient in no obvious distress upon re-evaluation. All pertinent laboratory/ Radiology result(s) discussed with patient. Discussed patient with Dr. Stein prior to discharge, who is in agreement with plan of care and disposition.. Any questions/concerns in reference to patient diagnosis/ condition discussed and clarified prior to patient's discharge. Reinforced sheer importance of close follow up with patient's primary physician or primary care clinic. Instructed patient to return to ED immediately, if symptoms return/ worsen. Patient showed understanding of above instructions. Further instructions and recommendations were detailed in discharge paperwork. Patient ambulated without difficulty out of ED at discharge. Diagnosis Primary Impression: Near syncope Patient Instructions: General Instructions, Hypotension (ED), Near Syncope (ED) Additional Instructions: Follow-up with your primary care physician in one to 3 days for reevaluation and possible adjustment of your blood pressure medicine. Drink plenty of non- caffeinated and nonalcoholic fluids. Return to the emergency department if symptoms get worse. Disposition: 01 DISCHARGE HOME Condition: Stable Steve Fonseca Sep 14, 2017 14:46
[2017-09-14 15:18] LABS: AUTOMATED NEUTROPHIL # 4.4 TH/MM3 (1.8-7.7); BASOPHIL % 0.2 % (0.0-2.0); EOSINOPHIL % 0.1 % (0.0-4.0); HEMATOCRIT 46.9 % (35.0-46.0); HEMOGLOBIN 15.5 GM/DL (11.6-15.3); LYMPH % 17.5 % (9.0-44.0); MEAN CELL VOLUME 84.6 FL (80.0-100.0); MEAN CORPUSCULAR HEMOGLOBIN 27.9 PG (27.0-34.0); MEAN PLATELET VOLUME 9.8 FL (7.0-11.0); MONO % 7.5 % (0.0-8.0); MONOCYTE # 0.4 TH/MM3 (0-0.9); NEUT % 74.7 % (16.0-70.0); PLATELET COUNT 144 TH/MM3 (150-450); RED BLOOD COUNT 5.55 MIL/MM3 (4.00-5.30); RED CELL DISTRIBUTION WIDTH 13.3 % (11.6-17.2); WHITE BLOOD COUNT 5.8 TH/MM3 (4.0-11.0)
[2017-09-14 15:28] VITALS: BP 139/66; RESP 18
[2017-09-14 15:29] VITALS: BP_SYST 123; BP_SYST 125; BP_SYST 139; BP_DIAS 61; BP_DIAS 66; RESP 18
[2017-09-14 15:35] LABS: BICARBONATE 18.7 MEQ/L (21.0-32.0); CALCIUM 8.5 MG/DL (8.5-10.1); CREATININE 1.25 MG/DL (0.50-1.00); MAGNESIUM 1.6 MG/DL (1.5-2.5)
[2017-09-14 15:38] LABS: TROPONIN I 0.02 NG/ML (0.02-0.05)
[2017-09-14 15:55] LABS: INTERNATIONAL NORMALIZED RATIO 1.2 RATIO
[2017-09-14 16:56] LABS: BILIRUBIN, URINE NEG (NEG); BLOOD, URINE NEG (NEG); GLUCOSE,URINE NEG (NEG); HYALINE CAST, URINE 3 /lpf (RARE); KETONE, URINE 80 mg/dL (NEG); MUCUS URINE FEW /lpf (OCC); NITRITE,URINE NEG (NEG); SQUAMOUS EPITHELIAL CELL URINE 1 /hpf (0-5); URINE COLOR LIGHT-YELLOW (YELLW/STRAW); URINE LEUKOCYTE ESTERASE MOD (NEG)
--- NOTE | 2017-09-14 17:06 | RADRPT ---
EXAM DATE/TIME: 09/14/2017 15:04 [facility] COMPARISON: CT BRAIN W/O CONTRAST, April 24, 2017, 21:27. INDICATIONS : Syncopal episode. RADIATION DOSE: 56.35 CTDIvol (mGy) MEDICAL HISTORY : Hypertension. Gastroesophageal reflux disease. Thyroid cancer. SURGICAL HISTORY : Appendectomy. Cholecystectomy.Thyroidectomy. ENCOUNTER: Initial ACUITY: 1 day PAIN SCALE: 0/10 LOCATION: cranial TECHNIQUE: Multiple contiguous axial images were obtained of the head. Using automated exposure control and adj ustment of the mA and/or kV according to patient size, radiation dose was kept as low as reasonably a chievable to obtain optimal diagnostic quality images. DICOM format image data is available electro nically for review and comparison. FINDINGS: CEREBRUM: The ventricles are normal for age. No evidence of midline shift, mass lesion, hemorrhage or acute in farction. No extra-axial fluid collections are seen. POSTERIOR FOSSA: The cerebellum and brainstem are intact. The 4th ventricle is midline. The cerebellopontine angle i s unremarkable. EXTRACRANIAL: The visualized portion of the orbits is intact. SKULL: The calvaria is intact. No evidence of skull fracture. CONCLUSION: Negative noncontrast CT brain. Hipolito Mendiola MD on September 14, 2017 at 17:04 Board Certified Radiologist. This report was verified electronically.
--- NOTE | 2017-09-14 23:20 | EKG ---
Date Performed: 09/14/2017 Time Performed: 14:56:58 PTAGE: 72 years EKG: Sinus rhythm RIGHT BUNDLE BRANCH BLOCK ABNORMAL ECG PREVIOUS TRACING : 06/02/2017 22.11 Compared to the previous tracing RBBB is new DOCTOR: Aguilar Chávez Interpretating Date/Time 09/14/2017 23:19:02
== END 2017-09-14 18:55 | disposition home or self-care (01) ==
LOC: NEPE 14:24
DX: R55 Syncope and collapse (principal)
CPT/HCPCS: 70450; 80048; 81001; 82550; 83735; 84484; 85025; 85610; 85730; 93005; 99285

== ENCOUNTER 2018-04-20 00:27 | Observation (INO) | payer MEDICARE, OTHER ==
[2018-04-20] VITALS (12 sets, daily range): BP systolic 116–144; BP diastolic 57–72; PULSE 72–97; RESP 16–25; TEMP 97.6–98.7; O2SAT 95–98
[~2018-04-20] VITALS: Ht 154.9 cm; Wt 65.0 kg
[~2018-04-20 00:27] MED LIST changes: -OMEP20TA PO; -ONDA1TAB17 PO; -TRAM50TA PO
[2018-04-20] MEDS ORDERED: TRAZ50TA12 PO (00:50)
[2018-04-20] MEDS: SODIUM CHLOR 0.9% 1000 ML INJ 1,000 ML IV SCH ×3 (00:57→21:31)
[2018-04-20] MEDS ORDERED: NITROGLYCERIN 0.4 MG SL 25 TABS/BTL SL ONE (01:00)
[2018-04-20] MEDS ORDERED: SODIUM CHLORIDE 0.9% FLUSH 10 ML FLUSH IVF PRN (01:00)
[2018-04-20] MEDS ORDERED: MORPHINE SULFATE 2 MG/ML SYRINGE IV PUSH ONE (01:00)
[2018-04-20] MEDS ORDERED: ONDANSETRON ODT 4 MG TAB PO ONE (01:00)
--- NOTE | 2018-04-20 01:47 | RADRPT ---
EXAM DATE: 04/20/2018 1:43 AM EDT AGE/SEX: 72 years / Female INDICATIONS: Chest pain and syncopal episode. CLINICAL DATA: This is the patient's initial encounter. Patient reports that signs and symptoms have been present for 1 day and indicates a pain score of 3/10. MEDICAL/SURGICAL HISTORY: Hypertension. Cholecystectomy. COMPARISON: No prior exams available for comparison. FINDINGS: PA and lateral views of the chest demonstrate the lungs to be symmetrically aerated without evidence of mass, infiltrate or effusion. The cardiomediastinal contours are unremarkable with tortuous aorta. Osseous structures are intact. CONCLUSION: No active disease. Tortuous aorta. Electronically signed by: Thomas Guerra MD 04/20/2018 1:46 AM EDT
[2018-04-20] MEDS ORDERED: MORPHINE SULFATE 4 MG/ML INJ IV ONE (03:00)
[2018-04-20 03:30] LABS: AUTOMATED NEUTROPHIL # 1.5 TH/MM3 (1.8-7.7); BASOPHIL # 0.1 TH/MM3 (0-0.2); BASOPHIL % 2.5 % (0.0-2.0); EOSINOPHIL % 0.5 % (0.0-4.0); HEMATOCRIT 40.3 % (35.0-46.0); HEMOGLOBIN 13.8 GM/DL (11.6-15.3); MEAN CELL VOLUME 81.7 FL (80.0-100.0); MEAN CORPUSCULAR HEMOGLOBIN 27.9 PG (27.0-34.0); MEAN CORPUSCULAR HGB CONC 34.2 % (32.0-36.0); MEAN PLATELET VOLUME 11.1 FL (7.0-11.0); MONO % 10.6 % (0.0-8.0); MONOCYTE # 0.4 TH/MM3 (0-0.9); NEUT % 37.4 % (16.0-70.0); PLATELET COUNT 150 TH/MM3 (150-450); RED BLOOD COUNT 4.93 MIL/MM3 (4.00-5.30); RED CELL DISTRIBUTION WIDTH 13.3 % (11.6-17.2); WHITE BLOOD COUNT 4.1 TH/MM3 (4.0-11.0)
[2018-04-20 03:40] LABS: INTERNATIONAL NORMALIZED RATIO 1.1 RATIO; PROTHROMBIN TIME - PATIENT 10.9 SEC (9.8-11.6)
--- NOTE | 2018-04-20 04:10 | PD ---
HPI Chief Complaint: Chest Pain Time Seen by Provider: 00:44 Travel History International Travel<30 days: No Contact w/Intl Traveler<30days: No Traveled to known affect area: No History of Present Illness HPI 71-year-old female presents to the emergency department for evaluation the patient arrives by EMS transport in route received aspirin and 2 sublingual nitroglycerin without change in pain from 8/10 intensity. Patient had mild nausea without vomiting. No diaphoresis or near syncope or syncope. Patient did complain of shortness of breath. No recent long distance travel protracted bedrest or surgical procedure. Patient denies any personal history or family history of clotting disorder coagulopathy or PE. Patient has had similar pain in the past but is uncertain as to the diagnosis. Patient has history of hypertension and dyslipidemia. Patient denies tobaccoism. No premature onset heart disease in her family history. Patient denies any recent febrile illness or respiratory illness. Patient is unable to identify exacerbating or alleviating factors. Patient was recently identified by her primary care provider to have a right bundle branch block pattern on her EKG and patient states that no one has ever told her that she has bundle branch block and therefore she was referred to cardiology. Patient is to see coat finisher sometime next week. PFSH Past Medical History Narrative Medical Depression thyroid disease right bundle branch block thyroidectomy appendectomy cholecystectomy; nursing notes reviewed Depression: Yes Heart Rhythm Problems: No Cancer: Yes (THYROID) Cardiac Catheterization: No Cardiovascular Problems: Yes (RBBB) High Cholesterol: No Congestive Heart Failure: No Diabetes: No Diminished Hearing: No GERD: Yes Hypertension: Yes Medical other: Yes (SYNCOPE) Respiratory: Yes Immunizations Current: Yes Thyroid Disease: Yes (HYPO) Menopausal: Yes Past Surgical History Appendectomy: Yes Cholecystectomy: Yes Coronary Artery Bypass Graft: No Tonsillectomy: Yes Other Surgery: Yes (THYROIDECTOMY ) Social History Alcohol Use: No Tobacco Use: No (QUIT ) Substance Use: No Allergies-Medications (Allergen,Severity, Reaction): Coded Allergies: egg (Unverified Allergy, Unknown, 09/14/17) Reported Meds & Prescriptions Reported Meds & Active Scripts Active Reported Trazodone (Trazodone HCl) 50 Mg Tab 50 Mg PO BID Enalapril (Enalapril Maleate) 20 Mg Tab 40 Mg PO DAILY Levothyroxine (Levothyroxine Sodium) 75 Mcg Tab 75 Mcg PO DAILY Review of Systems Except as stated in HPI: all other systems reviewed are Neg Physical Exam Narrative GENERAL: Well-developed well-nourished female no acute distress no respiratory distress SKIN: Warm and dry. HEAD: Normocephalic. EYES: No scleral icterus. No injection or drainage. NECK: Supple, trachea midline. No JVD or lymphadenopathy. CARDIOVASCULAR: Regular rate and rhythm without murmurs, gallops, or rubs. RESPIRATORY: Breath sounds equal bilaterally. No accessory muscle use. GASTROINTESTINAL: Abdomen soft, non-tender, nondistended. MUSCULOSKELETAL: No cyanosis, or edema. Radial dorsalis pedis pulses 2+ to palpation bilaterally BACK: Nontender without obvious deformity. No CVA tenderness. Data Data Last Documented VS Vital Signs Date Time Temp Pulse Resp B/P (MAP) Pulse Ox O2 Delivery O2 Flow Rate FiO2 04/20/18 03:44 95 21 04/20/18 03:44 73 18 135/69 (91) Room Air 04/20/18 00:32 98.6 Orders Orders Electrocardiogram (04/20/18 00:49) Basic Metabolic Panel (Bmp) (04/20/18 00:49) Ckmb (Isoenzyme) Profile (04/20/18 00:49) Complete Blood Count With Diff (04/20/18 00:49) Magnesium (Mg) (04/20/18 00:49) Prothrombin Time / Inr (Pt) (04/20/18 00:49) Act Partial Throm Time (Ptt) (04/20/18 00:49) Troponin I (04/20/18 00:49) Ecg Monitoring (04/20/18 00:49) Bilateral Bp Monitoring (04/20/18 00:49) Iv Access Insert/Monitor (04/20/18 00:49) Oximetry (04/20/18 00:49) Oxygen Administration (04/20/18 00:49) Sodium Chloride 0.9% Flush (Ns Flush) (04/20/18 01:00) Nitroglycerin Sl (Nitrostat Sl) (04/20/18 01:00) Chest, Pa & Lat (04/20/18 00:49) Sodium Chlor 0.9% 1000 Ml Inj (Ns 1000 M (04/20/18 01:00) Ondansetron Odt (Zofran Odt) (04/20/18 01:00) Morphine Inj (Morphine Inj) (04/20/18 03:00) D-Dimer (04/20/18 04:10) Potassium Chloride (Kcl) (04/20/18 04:45) Admit Order (Ed Use Only) (04/20/18 ) Street Engineer / Telemetry VINCENT.Q8H (04/20/18 04:32) Diet Heart Healthy (04/20/18 Breakfast) Activity Oob With Assistance (04/20/18 04:32) Notify Dr: Other (04/20/18 04:32) Activity Bed Rest With Brp (04/20/18 04:32) Vital Signs (Adult) Q4H (04/20/18 04:32) Cardiac Rhythm .As Directed (04/20/18 04:32) Notify Dr: Other .PRN (04/20/18 04:32) Notify Parameters (04/20/18 04:32) Resp Oxygen Nasal Cannula (04/20/18 ) Electrocardiogram (04/20/18 04:32) Electrocardiogram (04/20/18 07:32) ^ Obtain (04/20/18 04:32) Sodium Chloride 0.9% Flush (Ns Flush) (04/20/18 04:45) Sodium Chloride 0.9% Flush (Ns Flush) (04/20/18 09:00) Nitroglycerin Sl (Nitrostat Sl) (04/20/18 04:45) Street Engineer / Telemetry VINCENT.Q8H (04/20/18 04:32) Labs Laboratory Tests Test 04/20/18 03:00 White Blood Count 4.1 TH/MM3 Red Blood Count 4.93 MIL/MM3 Hemoglobin 13.8 GM/DL Hematocrit 40.3 % Mean Corpuscular Volume 81.7 FL Mean Corpuscular Hemoglobin 27.9 PG Mean Corpuscular Hemoglobin Concent 34.2 % Red Cell Distribution Width 13.3 % Platelet Count 150 TH/MM3 Mean Platelet Volume 11.1 FL Neutrophils (%) (Auto) 37.4 % Lymphocytes (%) (Auto) 49.0 % Monocytes (%) (Auto) 10.6 % Eosinophils (%) (Auto) 0.5 % Basophils (%) (Auto) 2.5 % Neutrophils # (Auto) 1.5 TH/MM3 Lymphocytes # (Auto) 2.0 TH/MM3 Monocytes # (Auto) 0.4 TH/MM3 Eosinophils # (Auto) 0.0 TH/MM3 Basophils # (Auto) 0.1 TH/MM3 CBC Comment DIFF FINAL Differential Comment Prothrombin Time 10.9 SEC Prothromb Time International Ratio 1.1 RATIO Activated Partial Thromboplast Time 25.4 SEC D-Dimer Quantitative (PE/DVT) 0.51 MG/L FEU Blood Urea Nitrogen 16 MG/DL Creatinine 1.20 MG/DL Random Glucose 122 MG/DL Calcium Level 9.1 MG/DL Magnesium Level 1.5 MG/DL Sodium Level 142 MEQ/L Potassium Level 3.2 MEQ/L Chloride Level 104 MEQ/L Carbon Dioxide Level 26.3 MEQ/L Anion Gap 12 MEQ/L Estimat Glomerular Filtration Rate 44 ML/MIN Total Creatine Kinase 84 U/L Troponin I LESS THAN 0.02 NG/ML MDM Medical Decision Making Medical Screen Exam Complete: Yes Emergency Medical Condition: Yes Medical Record Reviewed: Yes Interpretation(s) EKG normal sinus rhythm rate 95 incomplete right bundle branch block noted since [address] depression and T-wave inversion anteriorly consider ischemia no acute ST elevation essentially unchanged from EKG 05/2017 d-d: 0.51, minimally elevate Last Impressions Chest X-Ray 04/20/18 0049 Signed Impressions: CONCLUSION: No active disease. Tortuous aorta. Vital Signs Date Time Temp Pulse Resp B/P (MAP) Pulse Ox O2 Delivery O2 Flow Rate FiO2 04/20/18 03:44 73 18 135/69 (91) 95 Room Air 04/20/18 00:52 20 98 Room Air 04/20/18 00:40 88 18 123/72 (89) 96 Room Air 04/20/18 00:36 96 18 96 Room Air 04/20/18 00:32 98.6 97 25 128/71 (90) 96 Troponin I less than 0.02 Differential Diagnosis Chest pain atypical chest pain ACS MA aortic dissection PE bowel syndrome Narrative Course Patient placed on school lunch monitor with continuous pulse oximetry administered sublingual nitroglycerin 1 as well as morphine sulfate 2 mg IV Patient resting comfortably waiting on labs to be collected Labs resulted and troponin I less than 0.02 D-dimer is noted to be 0.51 minimally elevated and unlikely to be consistent with PE therefore will not expose patient to unnecessarily contrast dye and radiation patient will be admitted to chest pain center per protocol patient is agreeable to this and is comfortable this time Physician Communication Physician Communication hamper maker protocol Diagnosis Primary Impression: Chest pain in adult Admitting Information Admitting Physician Requests: Observation Priti De Los Santos MD Apr 20, 2018 04:10
[2018-04-20 04:15] LABS: BICARBONATE 26.3 MEQ/L (21.0-32.0); BLOOD UREA NITROGEN 16 MG/DL (7-18); CALCIUM 9.1 MG/DL (8.5-10.1); CHLORIDE 104 MEQ/L (98-107); GLOMERULAR FILTRATION RATE 44 ML/MIN (>89); GLUCOSE,RANDOM 122 MG/DL (74-106); MAGNESIUM 1.5 MG/DL (1.5-2.5); SODIUM (NA) 142 MEQ/L (136-145); TROPONIN I LESS THAN 0.02 NG/ML (0.02-0.05)
[2018-04-20] MEDS ORDERED: NITROGLYCERIN 0.4 MG SL 25 TABS/BTL SL PRN (04:45)
[2018-04-20] MEDS ORDERED: POTASSIUM CHLORIDE 20 MEQ CONTROLLED RELEASE TAB PO ONE (04:45)
[2018-04-20] MEDS ORDERED: SODIUM CHLORIDE 0.9% FLUSH 10 ML FLUSH IV FLUSH PRN ×2 (04:45→12:30)
[2018-04-20 06:48] LABS: TROPONIN I LESS THAN 0.02 NG/ML (0.02-0.05)
[2018-04-20] MEDS ORDERED: ONDANSETRON ODT 4 MG TAB PO PRN (07:45)
[2018-04-20] MEDS ORDERED: ACETAMINOPHEN 500 MG CPLT PO PRN (07:45)
[2018-04-20] MEDS: ASPIRIN 325 MG TAB PO SCH (08:43)
[2018-04-20] MEDS ORDERED: SODIUM CHLORIDE 0.9% FLUSH 10 ML FLUSH IV FLUSH SCH (09:00)
[2018-04-20 09:34] LABS: TROPONIN I LESS THAN 0.02 NG/ML (0.02-0.05)
--- NOTE | 2018-04-20 12:01 | HHI.HP ---
HPI Primary Care Physician No Primary Care Physician Chief Complaint Syncope episode History of Present Illness 72-year-old female history of hypertension, syncopal episodes, and hypothyroidism presents emergency room for further evaluation of syncopal episode. Onset last evening while sitting on the floor playing with her cat. No precipitating factors. Believes she was only unconscious for a matter of seconds. Reports 3 syncopal episodes in March, 2 syncopal episodes monthly since August 2017. Primary care provider referred her to [facility], appointment is scheduled for Monday of next week. In regards to chest discomfort, reports intermittent, nonexertional sharp substernal chest discomfort most of day yesterday with accompanying feelings of malaise. No radiation. No associated symptoms. No current chest discomfort. Review of Systems General: No fever, chills, or recent illness. Has been in her general state of health besides syncopal episodes since August 2017. HEENT: No MEDINA, no vision changes CV: As stated above. No current CP or pressure. No palpations or feelings of irregular heart beats. RESP: No SOB, cough GI: No nausea, vomiting, or bowel changes : No dysuria, urgency, frequency MS: No discomfort or change in ROM NEURO: Frequent syncope episodes twice monthly since August, x3 episodes in March. No difficulty with balance or motor/sensory deficits PSYCH: No anxiety, depression, or suicidal ideation SKIN: No rashes, no concerning lesions Past Family Social History Allergies: Coded Allergies: egg (Unverified Allergy, Unknown, 09/14/17) Past Medical History Thyroid carcinoma, syncopal episodes, hypertension Past Surgical History Thyroidectomy, appendectomy, cholecystectomy Reported Medications Reported Meds & Active Scripts Active Reported Trazodone (Trazodone HCl) 50 Mg Tab 50 Mg PO BID Enalapril (Enalapril Maleate) 20 Mg Tab 40 Mg PO DAILY Levothyroxine (Levothyroxine Sodium) 75 Mcg Tab 75 Mcg PO DAILY Active Ordered Medications Current Medications Medications (Trade) Dose Ordered Sig/Kirit Route Start Time Stop Time Status Last Admin Sodium Chloride 1,000 ml @ 100 mls/hr Q10H IV 04/20/18 01:00 04/20/18 00:57 (NS Flush) 2 ml UNSCH PRN IV FLUSH 04/20/18 04:45 (NS Flush) 2 ml BID IV FLUSH 04/20/18 09:00 04/20/18 08:43 (Nitrostat Sl) 0.4 mg Q5M PRN SL 04/20/18 04:45 (Tylenol) 500 mg Q4H PRN PO 04/20/18 07:45 (Aspirin) 325 mg DAILY PO 04/20/18 09:00 04/20/18 08:43 (Zofran Odt) 4 mg Q6H PRN PO 04/20/18 07:45 Social History Past cardiac testing No recent cardiac testing Physical Exam Vital Signs Vital Signs Date Time Temp Pulse Resp B/P (MAP) Pulse Ox O2 Delivery O2 Flow Rate FiO2 04/20/18 11:51 97.7 74 16 125/72 (89) 96 04/20/18 09:40 87 04/20/18 07:59 97.6 79 20 119/60 (79) 96 04/20/18 06:25 04/20/18 06:15 80 17 125/59 (81) 96 Room Air 04/20/18 03:44 95 21 04/20/18 03:44 73 18 135/69 (91) 95 Room Air 04/20/18 00:52 20 98 Room Air 04/20/18 00:40 88 18 123/72 (89) 96 Room Air 04/20/18 00:36 96 18 96 Room Air 04/20/18 00:32 98.6 97 25 128/71 (90) 96 Physical Exam GENERAL: Alert WN, WD, NAD, pleasant, elderly female HEAD: NC, AT CV: RRR, without murmur, rub, gallop, no JVD, S1-S2 no S3-S4. No carotid or femoral bruits. RESP: Clear lungs throughout bilateral, no crackles, wheeze, rhonchi, symmetrical chest rise, nonlabored, able to speak in full sentences ABD: Soft, NT, ND, no masses, positive bowel tones MS: Normal tone x4 extremities, nontender, no obvious deformities, full range of motion NEURO: CN II through CN XII grossly intact, motor strength 5/5 PSYCH: A+O x3, pleasant affect, appropriate speech, insight and judgment SKIN: Normal turgor, normal texture Laboratory Laboratory Tests Test 04/20/18 03:00 04/20/18 06:05 04/20/18 08:48 White Blood Count 4.1 Red Blood Count 4.93 Hemoglobin 13.8 Hematocrit 40.3 Mean Corpuscular Volume 81.7 Mean Corpuscular Hemoglobin 27.9 Mean Corpuscular Hemoglobin Concent 34.2 Red Cell Distribution Width 13.3 Platelet Count 150 Mean Platelet Volume 11.1 Neutrophils (%) (Auto) 37.4 Lymphocytes (%) (Auto) 49.0 Monocytes (%) (Auto) 10.6 Eosinophils (%) (Auto) 0.5 Basophils (%) (Auto) 2.5 Neutrophils # (Auto) 1.5 Lymphocytes # (Auto) 2.0 Monocytes # (Auto) 0.4 Eosinophils # (Auto) 0.0 Basophils # (Auto) 0.1 CBC Comment DIFF FINAL Differential Comment Prothrombin Time 10.9 Prothromb Time International Ratio 1.1 Activated Partial Thromboplast Time 25.4 D-Dimer Quantitative (PE/DVT) 0.51 Blood Urea Nitrogen 16 Creatinine 1.20 Random Glucose 122 Calcium Level 9.1 Magnesium Level 1.5 Sodium Level 142 Potassium Level 3.2 Chloride Level 104 Carbon Dioxide Level 26.3 Anion Gap 12 Estimat Glomerular Filtration Rate 44 Total Creatine Kinase 84 57 56 Troponin I LESS THAN 0.02 LESS THAN 0.02 LESS THAN 0.02 Result Diagram: 04/20/18 03004/20/18 030 Imaging Last 48 hours Impressions Chest X-Ray 04/20/18 0049 Signed Impressions: CONCLUSION: No active disease. Tortuous aorta. Course EKG Normal sinus rhythm, right bundle branch block Caprini VTE Risk Assessment Caprini VTE Risk Assessment: Mod/High Risk (score >= 2) Caprini Risk Assessment Model Point Value = 1 Point Value = 2 Point Value = 3 Point Value = 5 Age 41-60 Minor surgery BMI > 25 kg/m2 Swollen legs Varicose veins or History of unexplained or recurrent spontaneous Oral contraceptives or hormone replacement Sepsis (< 1 month) Serious lung disease, including pneumonia (< 1 month) Abnormal pulmonary function Acute myocardial infarction Congestive heart failure (< 1 month) History of inflammatory bowel disease Medical patient at bed rest Age 61-74 Arthroscopic surgery Major open surgery (> 45 min) Laparoscopic surgery (> 45 min) Malignancy Confined to bed (> 72 hours) Immobilizing plaster cast Central venous access Age >= 75 History of VTE Family history of VTE Factor V Leiden Prothrombin [id number] Lupus anticoagulant Anticardiolipin antibodies Elevated serum homocysteine Heparin-induced thrombocytopenia Other congenital or acquired thrombophilia Stroke (< 1 month) Elective arthroplasty Hip, pelvis, or leg fracture Acute spinal cord injury (< 1 month) Prophylaxis Regimen Total Risk Factor Score Risk Level Prophylaxis Regimen 0-1 Low Early ambulation 2 Moderate Order ONE of the following: *Sequential Compression Device (SCD) *Heparin 5000 units SQ BID 3-4 Higher Order ONE of the following medications: *Heparin 5000 units SQ TID *Enoxaparin/Lovenox 40 mg SQ daily (WT < 150 kg, CrCl > 30 mL/min) *Enoxaparin/Lovenox 30 mg SQ daily (WT < 150 kg, CrCl > 10-29 mL/min) *Enoxaparin/Lovenox 30 mg SQ BID (WT < 150 kg, CrCl > 30 mL/min) AND/OR *Sequential Compression Device (SCD) 5 or more Highest Order ONE of the following medications: *Heparin 5000 units SQ TID (Preferred with Epidurals) *Enoxaparin/Lovenox 40 mg SQ daily (WT < 150 kg, CrCl > 30 mL/min) *Enoxaparin/Lovenox 30 mg SQ daily (WT < 150 kg, CrCl > 10-29 mL/min) *Enoxaparin/Lovenox 30 mg SQ BID (WT < 150 kg, CrCl > 30 mL/min) AND *Sequential Compression Device (SCD) Assessment and Plan Assessment and Plan #1 Syncope episode-admitted to chest pain center. ACS ruled out with 3 sets of EKGs, cardiac enzymes, monitored on telemetry. Seen and evaluated by Dr. Gio Nguyen. Due to reported 3 syncopal episodes in March and at least 2 episodes monthly since August 2017 patient is not a candidate for chest pain center and will consult hospitalist to resume care of patient. Previously scheduled appointment April 24 with [facility], Dr. Sandoval, therefor consult for Dr. Sandoval also ordered. Dr. Nguyen explained plan of care with patient in length. Yamileth Lott Apr 20, 2018 12:01
--- NOTE | 2018-04-20 12:56 | PD.CONS ---
HPI Service [facility] Consult Requested By Dr. Nguyen Reason for Consult Syncope Primary Care Physician No Primary Care Physician Diagnoses: (1) Acute kidney injury (2) Hypokalemia (3) Syncope (4) Atypical chest pain History of Present Illness The patient is a 72-year-old female who was initially admitted to the chest pain center. She presented to the emergency department with complaint of sharp left-sided chest pain last night. No chest pain currently. ACS ruled out with serial cardiac enzymes and EKGs. Patient has had multiple syncopal episodes over the past few months, including one last night while sitting on the floor playing with her cat. She denies lightheadedness or dizziness at this time. She denies palpitations. She had been referred to cardiology by her PCP for syncope workup as she was found to have right bundle branch block on outpatient EKG. She has not yet seen cardiology; her appointment is scheduled for Monday with Dr. Ferrera. Review of Systems Constitutional: DENIES: Fever, Chills, Night Sweats Eyes: DENIES: Blurred vision, Vision loss Ears, nose, mouth, throat: DENIES: Hearing loss Respiratory: DENIES: Cough, Wheezing, Sputum production, Shortness of breath Cardiovascular: COMPLAINS OF: Chest pain, Syncope, DENIES: Palpitations, Dyspnea on Exertion, Lower Extremity Edema Gastrointestinal: COMPLAINS OF: Nausea, DENIES: Abdominal pain, Constipation, Diarrhea, Vomiting Genitourinary: DENIES: Urinary frequency, Urinary incontinence, Urgency, Hematuria, Dysuria, Nocturia Musculoskeletal: DENIES: Joint pain, Muscle aches Integumentary: DENIES: Pruritus, Rash Hematologic/lymphatic: DENIES: Bruising Neurologic: DENIES: Headache Past Family Social History Allergies: Coded Allergies: egg (Unverified Allergy, Unknown, 09/14/17) Past Medical History Diet controlled diabetes Hypertension GERD Hypothyroidism Past Surgical History Tonsillectomy Cholecystectomy Thyroidectomy Appendectomy Reported Medications Trazodone (Trazodone HCl) 50 Mg Tab 50 Mg PO BID Enalapril (Enalapril Maleate) 20 Mg Tab 40 Mg PO DAILY Levothyroxine (Levothyroxine Sodium) 75 Mcg Tab 75 Mcg PO DAILY Family History The patient states that she does not know her family medical history. Social History Quit smoking more than 15 years ago. Denies alcohol or illicit drug use. Physical Exam Vital Signs Vital Signs Date Time Temp Pulse Resp B/P (MAP) Pulse Ox O2 Delivery O2 Flow Rate FiO2 04/20/18 11:51 97.7 74 16 125/72 (89) 96 04/20/18 09:40 87 04/20/18 07:59 97.6 79 20 119/60 (79) 96 04/20/18 06:25 04/20/18 06:15 80 17 125/59 (81) 96 Room Air 04/20/18 03:44 95 21 04/20/18 03:44 73 18 135/69 (91) 95 Room Air 04/20/18 00:52 20 98 Room Air 04/20/18 00:40 88 18 123/72 (89) 96 Room Air 04/20/18 00:36 96 18 96 Room Air 04/20/18 00:32 98.6 97 25 128/71 (90) 96 Physical Exam GENERAL: Well-nourished, well-developed female in no acute distress. HEENT: Normocephalic, atraumatic. Pupils equal, round and reactive. Extraocular movements intact. No scleral icterus. No injection or drainage. Oropharynx is clear. Mucous membranes are moist. CARDIOVASCULAR: Regular rate and rhythm without murmurs, gallops, or rubs. RESPIRATORY: Clear to auscultation. No wheezes, rales, or rhonchi. Breathing is non-labored. GASTROINTESTINAL: Abdomen soft, non-tender, nondistended. EXTREMITIES: No lower extremity edema. No calf tenderness. PSYCH: Alert and oriented x 3. NEURO: Speech is normal. No focal deficits noted. Laboratory Laboratory Tests Test 04/20/18 03:00 04/20/18 06:05 04/20/18 08:48 White Blood Count 4.1 Red Blood Count 4.93 Hemoglobin 13.8 Hematocrit 40.3 Mean Corpuscular Volume 81.7 Mean Corpuscular Hemoglobin 27.9 Mean Corpuscular Hemoglobin Concent 34.2 Red Cell Distribution Width 13.3 Platelet Count 150 Mean Platelet Volume 11.1 Neutrophils (%) (Auto) 37.4 Lymphocytes (%) (Auto) 49.0 Monocytes (%) (Auto) 10.6 Eosinophils (%) (Auto) 0.5 Basophils (%) (Auto) 2.5 Neutrophils # (Auto) 1.5 Lymphocytes # (Auto) 2.0 Monocytes # (Auto) 0.4 Eosinophils # (Auto) 0.0 Basophils # (Auto) 0.1 CBC Comment DIFF FINAL Differential Comment Prothrombin Time 10.9 Prothromb Time International Ratio 1.1 Activated Partial Thromboplast Time 25.4 D-Dimer Quantitative (PE/DVT) 0.51 Blood Urea Nitrogen 16 Creatinine 1.20 Random Glucose 122 Calcium Level 9.1 Magnesium Level 1.5 Sodium Level 142 Potassium Level 3.2 Chloride Level 104 Carbon Dioxide Level 26.3 Anion Gap 12 Estimat Glomerular Filtration Rate 44 Total Creatine Kinase 84 57 56 Troponin I LESS THAN 0.02 LESS THAN 0.02 LESS THAN 0.02 Result Diagram: 04/20/1829904/20/18299 Imaging Last Impressions Chest X-Ray 04/20/18 0049 Signed Impressions: CONCLUSION: No active disease. Tortuous aorta. Assessment and Plan Assessment and Plan 1. Syncope: Monitor on telemetry. Check 2D echocardiogram. Consult cardiology. 2. Hypertension: Continue enalapril. 3. Diet-controlled diabetes mellitus: Monitor Accu-Cheks and cover with sliding scale insulin. 4. Hypokalemia: Received supplementation in the ER. Monitor labs. 5. Chronic kidney disease stage III: Monitor creatinine. Patient appears to be close to her baseline. 6. DVT prophylaxis: HUDSON Ferguson. Juan Alexander MD Apr 20, 2018 12:56
--- NOTE | 2018-04-20 13:15 | EKG ---
Date Performed: 04/20/2018 Time Performed: 06:02:45 PTAGE: 72 years EKG: Sinus rhythm LOW QRS VOLTAGE IN PRECORDIAL LEADS RIGHT BUNDLE BRANCH BLOCK BORDERLINE ECG PREVIOUS TRACING : 04/20/2018 00.36 Since previous tracing, no significant change noted DOCTOR: Gio Nguyen Interpretating Date/Time 04/20/2018 13:14:32
--- NOTE | 2018-04-20 13:18 | EKG ---
Date Performed: 04/20/2018 Time Performed: 00:36:28 PTAGE: 72 years EKG: Sinus rhythm WITH SHORT [place] INTERVAL RIGHT BUNDLE BRANCH BLOCK ST DEVIATION AND MODERATE T-WAVE ABNORMALITY, ABNO RMAL ECG PREVIOUS TRACING : 09/14/2017 14.56 Since previous tracing, no significant change noted DOCTOR: Gio Nguyen Interpretating Date/Time 04/20/2018 13:16:22
--- NOTE | 2018-04-20 13:22 | EKG ---
Date Performed: 04/20/2018 Time Performed: 08:51:26 PTAGE: 72 years EKG: Sinus rhythm RIGHT BUNDLE BRANCH BLOCK NONSPECIFIC T-WAVE ABNORMALITY BORDERLINE ECG PREVIOUS TRACING : 04/20/2018 06.02 \spt DOCTOR: Gio Nguyen Interpretating Date/Time 04/20/2018 13:21:15
--- NOTE | 2018-04-20 19:11 | MB ---
cc: Peter Bryan MD, Vance E MD DATE: 04/20/2018 REASON FOR CONSULTATION: Evaluation of syncope. HISTORY OF PRESENT ILLNESS: Megan Pagan is a 72-year-old female who says that yesterday she felt lousy all day long. She had stabbing pains in the center of her chest, lasting a few seconds, coming off and on all day long. Then while she was sitting on the floor playing with her cat, she said things went black and she woke up and she was on the floor. She was not sweaty. She was shaky. She was nervous. She had no incontinence. She was a little bit nauseated. She says she first passed out in August and passes out about once or twice a month. Usually things go black and she ends up on the floor. She has had no injuries during these episodes. She has not had any vomiting. She had some nausea before. Says she ate normal yesterday, did not have any breathing trouble. PAST MEDICAL HISTORY: Includes hypertension 3-4 years, gastroesophageal reflux disease which but she has rarely, diabetes currently prediabetes, diet controlled. SOCIAL HISTORY: She is and lives alone. 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 She has 1 child. She smoked less than a pack a day, but quit 15 years ago. PAST SURGICAL HISTORY: Includes right carpal tunnel release, tonsillectomy, cholecystectomy, thyroidectomy, parathyroidectomy, appendectomy and benign breast tumor removal. ALLERGIES: ALLERGIC TO EGGS. MEDICATIONS: 1. Enalapril 40 mg daily. 2. Trazodone 3. Levothyroxine. REVIEW OF SYSTEMS: Otherwise negative. PHYSICAL EXAMINATION: GENERAL: Reveals an overweight white female. She appears mildly lethargic. VITAL SIGNS: Blood pressures are on the lower side. She is in sinus rhythm on telemetry. HEENT: Unremarkable. NECK: No JVD. No bruits. CHEST: Clear to auscultation. CARDIOVASCULAR: Soft S1, normal S2. Regular rate and rhythm. ABDOMEN: Obese, soft, nontender. EXTREMITIES: No clubbing, cyanosis or edema. Pulses are intact. CARDIOLOGY STUDIES: EKG shows sinus rhythm with right bundle branch block. IMAGING STUDIES: Chest x-ray: No acute disease. LABORATORY DATA: Troponins are negative. Potassium is 3.2, which was repleted, hematocrit 40.3. IMPRESSION: Chest pain. Myocardial infarction has been ruled out. Syncope etiology unclear, vasovagal most likely. RECOMMENDATIONS: Check a stress test, echocardiogram, carotid Doppler study. We will consider an insertable loop recorder. Reduce her enalapril dose with blood pressure parameters to hold it if needed. Further therapy to be determined. MD CORETTA Ngo/ , 06:40 PM , 07:10 PM
--- NOTE | 2018-04-20 19:47 | RADRPT ---
EXAM DATE: 04/20/2018 7:32 PM EDT AGE/SEX: 72 years / Female INDICATIONS: Syncope. CLINICAL DATA: This is the patient's initial encounter. Patient reports that signs and symptoms have been present for 4 - 6 months and indicates a pain score of 0/10. MEDICAL/SURGICAL HISTORY: Hypothyroidism. Hypertension. Gastroesophageal reflux disease. Betty betes. Depression. Thyroid cancer. Tonsillectomy. Appendectomy. Cholecystectomy. Thyroidectomy. COMPARISON: No prior [place] exams available for comparison. VELOCITY PARAMETERS: ICA/CCA Ratio: Right 0.8 , Left 1.2 ICA: Right 72 cm/sec, Left 77 cm/sec CCA: Right 92 cm/sec, Left 66 cm/sec ECA: Right 72 cm/sec, Left 66 cm/sec Vertebral: Right 40 cm/sec antegrade, Left 41 cm/sec antegrade FINDINGS: Right Carotid: No significant stenosis is visualized. The waveforms are within normal limits. Left Carotid: No significant stenosis is visualized. The waveforms are within normal limits. There is mild atherosclerotic disease in the carotid bulb. Other: None. CONCLUSION: 1. Right Internal Carotid Artery: Findings indicate <50% stenosis. 2. Left Internal Carotid Artery: Findings indicate <50% stenosis. Electronically signed by: Grey Montes De Oca MD 04/20/2018 7:46 PM EDT
[2018-04-20] MEDS: traZODone HCL 50 MG TAB PO SCH (21:31)
[2018-04-20] MEDS: SODIUM CHLORIDE 0.9% FLUSH 10 ML FLUSH IV FLUSH SCH (21:31)
[2018-04-21] VITALS (8 sets, daily range): BP systolic 122–180; BP diastolic 64–81; PULSE 71–86; RESP 17–18; TEMP 97.9–98.7; O2SAT 96–99
[2018-04-21] MEDS: SODIUM CHLOR 0.9% 1000 ML INJ 1,000 ML IV SCH ×2 (06:07→17:24)
[2018-04-21] MEDS: LEVOTHYROXINE SODIUM 75 MCG TAB PO SCH (06:16)
[2018-04-21 08:45] LABS: BICARBONATE 25.9 MEQ/L (21.0-32.0); CREATININE 0.93 MG/DL (0.50-1.00)
[2018-04-21 08:54] LABS: CHOLESTEROL/ HDL RATIO 3.52 RATIO; HDL CHOLESTEROL 33.5 MG/DL (40.0-60.0)
[2018-04-21] MEDS ORDERED: ENALAPRIL MALEATE 10 MG TAB PO SCH (09:00)
--- NOTE | 2018-04-21 09:07 | PD.CARD.PN ---
Subjective Subjective Remarks no complaints Objective Medications Current Medications Medications (Trade) Dose Ordered Sig/Kirit Route Start Time Stop Time Status Last Admin Sodium Chloride 1,000 ml @ 100 mls/hr Q10H IV 04/20/18 01:00 04/20/18 21:31 (Nitrostat Sl) 0.4 mg Q5M PRN SL 04/20/18 04:45 (Tylenol) 500 mg Q4H PRN PO 04/20/18 07:45 (Aspirin) 325 mg DAILY PO 04/20/18 09:00 04/20/18 08:43 (Zofran Odt) 4 mg Q6H PRN PO 04/20/18 07:45 (NS Flush) 2 ml UNSCH PRN IV FLUSH 04/20/18 12:30 (NS Flush) 2 ml BID IV FLUSH 04/20/18 21:00 04/20/18 21:31 (Synthroid) 75 mcg DAILY@0600 PO 04/21/18 06:00 04/21/18 06:16 (Desyrel) 50 mg BID PO 04/20/18 21:00 04/20/18 21:31 (Vasotec) 10 mg BID PO 04/21/18 09:00 Vital Signs / I&O Vital Signs Date Time Temp Pulse Resp B/P (MAP) Pulse Ox O2 Delivery O2 Flow Rate FiO2 04/21/18 07:57 97.9 72 18 173/79 (110) 96 04/21/18 03:20 98.1 85 17 122/67 (85) 97 04/20/18 23:07 97.8 73 16 120/57 (78) 97 04/20/18 19:46 98.7 78 16 144/69 (94) 98 04/20/18 16:12 97.7 80 20 116/62 (80) 97 04/20/18 15:00 72 04/20/18 11:51 97.7 74 16 125/72 (89) 96 04/20/18 09:40 87 Physical Exam Alert Chest clear CV S1S2 RRR no edema Laboratory Laboratory Tests Test 04/21/18 06:50 Blood Urea Nitrogen 13 MG/DL Creatinine 0.93 MG/DL Random Glucose 92 MG/DL Calcium Level 8.0 MG/DL Sodium Level 141 MEQ/L Potassium Level 3.6 MEQ/L Chloride Level 106 MEQ/L Carbon Dioxide Level 25.9 MEQ/L Anion Gap 9 MEQ/L Estimat Glomerular Filtration Rate 59 ML/MIN Triglycerides Level 156 MG/DL Cholesterol Level 118 MG/DL LDL Cholesterol 53 MG/DL HDL Cholesterol 33.5 MG/DL Cholesterol/HDL Ratio 3.52 RATIO Thyroid Stimulating Hormone 3rd Gen 1.310 uIU/ML Imaging Last 48 hours Impressions Chest X-Ray 04/20/18 0049 Signed Impressions: CONCLUSION: No active disease. Tortuous aorta. Carotid Artery Ultrasound 04/20/18 0000 Signed Impressions: CONCLUSION: 1. Right Internal Carotid Artery: Findings indicate <50% stenosis. 2. Left Internal Carotid Artery: Findings indicate <50% stenosis. Assessment and Plan Problem List: (1) Syncope ICD Codes: R55 - Syncope and collapse Plan: work-up in progress (2) Chest pain in adult ICD Codes: R07.9 - Chest pain, unspecified Status: Acute Plan: chela-SPECT Peter Bryan MD Apr 21, 2018 09:07
[2018-04-21] MEDS ORDERED: REGADENOSON INJ 0.4 MG/5 ML SYR ONE (09:47)
--- NOTE | 2018-04-21 11:00 | RADRPT ---
EXAM DATE: 04/21/2018 10:53 AM EDT AGE/SEX: 72 years / Female INDICATIONS:Angina. . Substernal chest pain. Syncope. CLINICAL DATA: This is the patient's initial encounter. Patient reports that signs and symptoms have been present for 1 day and indicates a pain score of 6/10. MEDICAL/SURGICAL HISTORY: Hypertension. Gastroesophageal reflux disease. Cholecystectomy. Ton sillectomy. Appendectomy. Thyroidectomy, parathyroidectomy and breast tumor removal. COMPARISON: No prior [place] exams available for comparison. DOSE: 8.5 mCi Tc 99m Myoview at rest 25.4 mCi [id number] at stress 0.4 mg Lexiscan STRESS SYMPTOMS: Stomach pain. EJECTION FRACTION: 69 % TECHNIQUE: The patient underwent pharmacologic stress with infusion of prescribed dose. Continuous ECG tracing was monitored during stress. Gated SPECT imaging was performed after stress and conventi onal SPECT imaging was performed at rest. The examination was performed on a SPECT/CT scanner, both attenuation and non-corrected datasets were reviewed. FINDINGS: Distribution: The maximum perfused segment at stress is in the septal wall. Perfusion Study: The pattern of perfusion at stress is within normal limits. Gated Study: There are intact wall motion and wall thickening without hypokinetic or dyskinetic segm ents. The ejection fraction is calculated at 69%. RISK CATEGORY: Low risk CONCLUSION: 1. No evidence of fixed or reversible perfusion defect. Normal wall motion with normal ejection frac tion. Electronically signed by: Venus Torres MD 04/21/2018 10:58 AM EDT
[2018-04-21] MEDS: ASPIRIN 325 MG TAB PO SCH (13:44)
[2018-04-21] MEDS: ENALAPRIL MALEATE 10 MG TAB PO SCH ×2 (13:44→21:47)
[2018-04-21] MEDS: traZODone HCL 50 MG TAB PO SCH ×2 (13:45→21:48)
--- NOTE | 2018-04-21 14:07 | HHI.PR ---
Subjective Remarks Follow up syncope. The patient is still reporting dizziness and lightheadedness. She states that she feels like she is going to pass out, especially when she just stands up. Denies chest pain or dyspnea. Objective Vitals Vital Signs Date Time Temp Pulse Resp B/P (MAP) Pulse Ox O2 Delivery O2 Flow Rate FiO2 04/21/18 12:43 97.9 71 18 180/81 (114) 98 04/21/18 07:57 97.9 72 18 173/79 (110) 96 04/21/18 03:20 98.1 85 17 122/67 (85) 97 04/20/18 23:07 97.8 73 16 120/57 (78) 97 04/20/18 19:46 98.7 78 16 144/69 (94) 98 04/20/18 16:12 97.7 80 20 116/62 (80) 97 04/20/18 15:00 72 Result Diagram: 04/20/18 0300 04/21/18 0650 Imaging Last Impressions Myocardial Perfusion Scan Nuc Med 04/21/18 0000 Signed Impressions: CONCLUSION: 1. No evidence of fixed or reversible perfusion defect. Normal wall motion wit h normal ejection fraction. Chest X-Ray 04/20/18 0049 Signed Impressions: CONCLUSION: No active disease. Tortuous aorta. Carotid Artery Ultrasound 04/20/18 0000 Signed Impressions: CONCLUSION: 1. Right Internal Carotid Artery: Findings indicate <50% stenosis. 2. Left Internal Carotid Artery: Findings indicate <50% stenosis. Objective Remarks General: No acute distress. Heart: Regular rate and rhythm. No murmur. Lungs: Clear to auscultation bilaterally. No wheezes, rales, or rhonchi. Breathing is nonlabored. Abdomen: Soft, nontender, nondistended. Extremities: No lower extremity edema. Psych: Alert and oriented. Neuro: Normal speech. No focal deficits noted. Procedures None Urinary Catheter: No Vascular Central Line Catheter: No A/P Problem List: (1) Acute kidney injury ICD Code: N17.9 - Acute kidney failure, unspecified (2) Hypokalemia ICD Code: E87.6 - Hypokalemia (3) Syncope ICD Code: R55 - Syncope and collapse (4) Atypical chest pain ICD Code: R07.89 - Other chest pain Status: Acute Assessment and Plan 1. Syncope: Monitor on telemetry. Check 2D echocardiogram. Appreciate cardiology recommendations. 2. Hypertension: Continue enalapril. 3. Diet-controlled diabetes mellitus: Monitor Accu-Cheks and cover with sliding scale insulin. 4. Hypokalemia: Improved. 5. Chronic kidney disease stage III: Monitor creatinine. 6. Chest pain: Atypical. Nuclear stress test is negative. 7. DVT prophylaxis: HUDSON Ferguson. Discharge Planning Pending cardiology clearance, further clinical improvement. Juan Alexander MD Apr 21, 2018 14:07
[2018-04-21] MEDS: PANTOPRAZOLE SOD 40 MG DELAYED RELEASE TAB PO SCH (17:22)
[2018-04-21] MEDS: SODIUM CHLORIDE 0.9% FLUSH 10 ML FLUSH IV FLUSH SCH ×2 (17:23→21:00)
[2018-04-22] MEDS: SODIUM CHLOR 0.9% 1000 ML INJ 1,000 ML IV SCH ×3 (03:00→23:00)
[2018-04-22 04:08] VITALS: BP 142/68; PULSE 72; RESP 17; TEMP 98.2; O2SAT 97
[2018-04-22 08:00] VITALS: PULSE 90
[2018-04-22] MEDS: SODIUM CHLORIDE 0.9% FLUSH 10 ML FLUSH IV FLUSH SCH ×2 (09:00→21:51)
[2018-04-22] MEDS: LEVOTHYROXINE SODIUM 75 MCG TAB PO SCH (09:20)
[2018-04-22] MEDS: ENALAPRIL MALEATE 10 MG TAB PO SCH ×2 (09:20→21:00)
[2018-04-22] MEDS: traZODone HCL 50 MG TAB PO SCH ×2 (09:21→21:50)
[2018-04-22] MEDS: PANTOPRAZOLE SOD 40 MG DELAYED RELEASE TAB PO SCH (09:21)
[2018-04-22] MEDS: ASPIRIN 325 MG TAB PO SCH (09:22)
--- NOTE | 2018-04-22 09:57 | HHI.PR ---
Subjective Remarks Follow-up for syncope. Patient reports overall feeling better today. She reports very slight lightheadedness upon initially standing, but goes away after a few seconds. Denies any further syncopal events. Denies any chest pain , palpitations, shortness of breath. She wants to go home today. Objective Vitals Vital Signs Date Time Temp Pulse Resp B/P (MAP) Pulse Ox O2 Delivery O2 Flow Rate FiO2 04/22/18 06:35 21 04/22/18 04:08 98.2 72 17 142/68 (92) 97 04/21/18 23:52 98.1 86 17 144/71 (95) 98 04/21/18 23:00 72 04/21/18 20:02 99 21 04/21/18 19:41 97.9 76 17 132/66 (88) 98 04/21/18 15:08 98.7 71 18 135/64 (87) 98 148/71 (96) 143/67 (92) 04/21/18 12:43 97.9 71 18 180/81 (114) 98 Result Diagram: 04/20/18 0300 04/21/18 0650 Imaging Last Impressions Myocardial Perfusion Scan Nuc Med 04/21/18 0000 Signed Impressions: CONCLUSION: 1. No evidence of fixed or reversible perfusion defect. Normal wall motion wit h normal ejection fraction. Chest X-Ray 04/20/18 0049 Signed Impressions: CONCLUSION: No active disease. Tortuous aorta. Carotid Artery Ultrasound 04/20/18 0000 Signed Impressions: CONCLUSION: 1. Right Internal Carotid Artery: Findings indicate <50% stenosis. 2. Left Internal Carotid Artery: Findings indicate <50% stenosis. Objective Remarks GENERAL: Well-nourished, well-developed elderly female patient in [facility]. SKIN: Warm and dry. No rash. HEENT: Normocephalic. Atraumatic. Pupils equal and round. Mucous membranes pink and moist. CARDIOVASCULAR: Regular rate and rhythm. No murmur appreciated. RESPIRATORY: No accessory muscle use. Clear to auscultation. Breath sounds equal bilaterally. GASTROINTESTINAL: Abdomen soft, non-tender, nondistended. Normoactive bowel sounds x4. MUSCULOSKELETAL: No obvious deformities. Extremities without clubbing, cyanosis , or edema. NEUROLOGICAL: Awake and alert. No obvious cranial nerve deficits. Motor grossly within normal limits. Moving all extremities spontaneously. Normal speech. PSYCHIATRIC: Appropriate mood and affect; insight and judgment normal. Procedures None Medications and IVs Current Medications Medications (Trade) Dose Ordered Sig/Kirit Route Start Time Stop Time Status Last Admin Sodium Chloride 1,000 ml @ 100 mls/hr Q10H IV 04/20/18 01:00 04/21/18 17:24 (Nitrostat Sl) 0.4 mg Q5M PRN SL 04/20/18 04:45 (Tylenol) 500 mg Q4H PRN PO 04/20/18 07:45 (Aspirin) 325 mg DAILY PO 04/20/18 09:00 04/22/18 09:22 (Zofran Odt) 4 mg Q6H PRN PO 04/20/18 07:45 (NS Flush) 2 ml UNSCH PRN IV FLUSH 04/20/18 12:30 (NS Flush) 2 ml BID IV FLUSH 04/20/18 21:00 04/21/18 17:23 (Synthroid) 75 mcg DAILY@0600 PO 04/21/18 06:00 04/22/18 09:20 (Desyrel) 50 mg BID PO 04/20/18 21:00 04/22/18 09:21 (Vasotec) 10 mg BID PO 04/21/18 09:00 04/22/18 09:20 (Protonix) 40 mg DAILY PO 04/21/18 14:00 04/22/18 09:21 A/P Problem List: (1) Acute kidney injury ICD Code: N17.9 - Acute kidney failure, unspecified (2) Hypokalemia ICD Code: E87.6 - Hypokalemia (3) Syncope ICD Code: R55 - Syncope and collapse (4) Atypical chest pain ICD Code: R07.89 - Other chest pain Status: Acute Assessment and Plan 72-year-old female with history of hypertension, diet-controlled diabetes, hypothyroidism, GERD, presents with chest pain and syncopal episodes Syncope: Unclear etiology, patient reporting multiple sudden syncopal episodes over the past few months. Possibly secondary to dehydration. Rule out cardiomyopathy, ACS, arrhythmia. -EMR reviewed, head CT 2 in 2017 unremarkable -Orthostatic blood pressures negative -Given IVF hydration -ACS ruled out with negative serial cardiac enzymes and EKG without acute ischemic changes -Monitor on telemetry, no arrhythmias -Nuclear stress test unremarkable -Consulted cardiology, appreciate recommendations, plans for loop recorder placement 04/23 -2D echocardiogram pending -Symptoms much improved, patient ambulating the unit without any difficulty Hypertension: Chronic, patient reports she was previously on enalapril but this was stopped in August due to her symptoms -Cardiology restarted enalapril at lower dose of 10 mg bid -BP well controlled and orthostatic vital signs negative Diet-controlled diabetes mellitus: Chronic -monitor Accu-Cheks and cover with sliding scale insulin. MARYJANE on CKD stage III: Creatinine 1.2 upon arrival, likely secondary to dehydration. -Given IV fluid hydration -Avoid nephrotoxins -Repeat BMP shows improvement, creatinine 0.93 Chest pain: Atypical. -ACS ruled out, EKGs with no acute ischemic changes, and nuclear stress test is negative. -Chest pain resolved DVT prophylaxis: HUDSON Ferguson. Discharge Planning Awaiting echocardiogram and plan for loop recorder placement prior to discharge tomorrow 04/23. Marisol Saravia PA-C Apr 22, 2018 9:57 am
[2018-04-22 11:11] VITALS: BP_SYST 135; BP_SYST 139; BP_SYST 141; BP_DIAS 66; BP_DIAS 67; BP_DIAS 69
--- NOTE | 2018-04-22 11:13 | PD.CARD.PN ---
Subjective Subjective Remarks no complaints Objective Medications Current Medications Medications (Trade) Dose Ordered Sig/Kirit Route Start Time Stop Time Status Last Admin Sodium Chloride 1,000 ml @ 100 mls/hr Q10H IV 04/20/18 01:00 04/21/18 17:24 (Nitrostat Sl) 0.4 mg Q5M PRN SL 04/20/18 04:45 (Tylenol) 500 mg Q4H PRN PO 04/20/18 07:45 (Aspirin) 325 mg DAILY PO 04/20/18 09:00 04/22/18 09:22 (Zofran Odt) 4 mg Q6H PRN PO 04/20/18 07:45 (NS Flush) 2 ml UNSCH PRN IV FLUSH 04/20/18 12:30 (NS Flush) 2 ml BID IV FLUSH 04/20/18 21:00 04/21/18 17:23 (Synthroid) 75 mcg DAILY@0600 PO 04/21/18 06:00 04/22/18 09:20 (Desyrel) 50 mg BID PO 04/20/18 21:00 04/22/18 09:21 (Vasotec) 10 mg BID PO 04/21/18 09:00 04/22/18 09:20 (Protonix) 40 mg DAILY PO 04/21/18 14:00 04/22/18 09:21 Vital Signs / I&O Vital Signs Date Time Temp Pulse Resp B/P (MAP) Pulse Ox O2 Delivery O2 Flow Rate FiO2 04/22/18 06:35 21 04/22/18 04:08 98.2 72 17 142/68 (92) 97 04/21/18 23:52 98.1 86 17 144/71 (95) 98 04/21/18 23:00 72 04/21/18 20:02 99 21 04/21/18 19:41 97.9 76 17 132/66 (88) 98 04/21/18 15:08 98.7 71 18 135/64 (87) 98 148/71 (96) 143/67 (92) 04/21/18 12:43 97.9 71 18 180/81 (114) 98 Physical Exam Alert Chest clear CV S1S2 RRR no edema tele no arrythmia Assessment and Plan Problem List: (1) Syncope ICD Codes: R55 - Syncope and collapse Plan: W/U negative. If she stays in hospital will insert loop recorder. Procedure explained. (2) Chest pain in adult ICD Codes: R07.9 - Chest pain, unspecified Status: Acute Plan: no ischemia by SPECT Peter Bryan MD Apr 22, 2018 11:13
[2018-04-22] MEDS ORDERED: ENAL10TA PO (11:15)
--- NOTE | 2018-04-22 11:16 | HHI.DCPOC ---
Discharge Care Plan Diagnosis: (1) Syncope (2) Hypertension (3) Acute kidney injury Goals to Promote Your Health * To prevent worsening of your condition and complications * To maintain your health at the optimal level Directions to Meet Your Goals Take your medications as prescribed Follow your dietary instruction Follow activity as directed Keep your appointments as scheduled Take your immunizations and boosters as scheduled If your symptoms worsen call your PCP, if no PCP go to Urgent Care Center or Emergency Room Smoking is Dangerous to Your Health. Avoid second hand smoke Call the 24-hour hour crisis hotline for domestic abuse at Marisol Saravia PA-C Apr 22, 2018 11:16 am
[2018-04-22 13:05] VITALS: O2SAT 97
[2018-04-22 17:16] VITALS: BP 104/60; PULSE 68; RESP 18; TEMP 98.6; O2SAT 98
--- NOTE | 2018-04-22 18:18 | ECHRPT ---
Indication: Syncope and collapse CONCLUSIONS Normal left ventricular size and wall thickness. The left ventricular systolic function is normal wi th an estimated ejection fraction in the range of 60-65%. Left ventricular diastolic function parameters a re normal. There is mild tricuspid valve regurgitation. The estimated pulmonary arterial pressure is 35 mmHg. Mild mitral valve regurgitation. BP: / HR: Rhythm: Sinus MEASUREMENTS (Male / Female) Normal Values Technical Quality:Fair 2D ECHO LV Diastolic Diameter PLAX 3.6 cm 4.2 - 5.9 / 3.9 - 5.3 cm LV Systolic Diameter PLAX 2.6 cm IVS Diastolic Thickness 1.1 cm 0.6 - 1.0 / 0.6 - 0.9 cm LVPW Diastolic Thickness 1.1 cm 0.6 - 1.0 / 0.6 - 0.9 cm LV Relative Wall Thickness 0.6 LVOT Diameter 2.0 cm M-MODE Aortic Root Diameter MM 3.5 cm LA Systolic Diameter MM 3.0 cm LA Ao Ratio MM 0.9 AV Cusp Separation MM 1.9 cm DOPPLER AV Peak Velocity 128.0 cm/s AV Peak Gradient 6.6 mmHg LVOT Peak Velocity 109.0 cm/s LVOT Peak Gradient 4.8 mmHg AV Area Cont Eq pk 2.7 cm MR Peak Velocity 323.0 cm/s MR Peak Gradient 41.7 mmHg Mitral E Point Velocity 93.8 cm/s Mitral A Point Velocity 93.8 cm/s Mitral E to A Ratio 1.0 LV E' Lateral Velocity 10.3 cm/s Mitral E to LV E' Lateral Ratio 9.1 LV E' Septal Velocity 8.2 cm/s Mitral E to LV E' Septal Ratio 11.5 TR Peak Velocity 250.0 cm/s TR Peak Gradient 25.0 mmHg Right Atrial Pressure 10.0 mmHg Pulmonary Artery Systolic Pressu 35.0 mmHg Right Ventricular Systolic Press 35.0 mmHg PV Peak Velocity 89.6 cm/s PV Peak Gradient 3.2 mmHg FINDINGS LEFT VENTRICLE Normal left ventricular size and wall thickness. The left ventricular systolic function is normal wi th an estimated ejection fraction in the range of 60-65%. Left ventricular diastolic function parameters a re normal. RIGHT VENTRICLE Normal right ventricular size and systolic function. LEFT ATRIUM The left atrial size is normal. RIGHT ATRIUM The right atrial size is normal. ATRIAL SEPTUM Normal atrial septal thickness without atrial level shunting by limited color doppler interrogation. AORTA The aortic root and proximal ascending aorta are normal in size on limited imaging. MITRAL VALVE Mild mitral valve regurgitation. AORTIC VALVE Trileaflet aortic valve. No aortic valve stenosis or regurgitation. TRICUSPID VALVE There is mild tricuspid valve regurgitation. The estimated pulmonary arterial pressure is 35 mmHg. PULMONARY VALVE No pulmonary valve regurgitation or stenosis. VESSELS The inferior vena cava is normal in size. PERICARDIUM No pericardial effusion. Ambrosio Crane MD, FACC, [facility] [place] (Electronically Signed) Final Date:22 April 2018 18:17
[2018-04-22 21:43] VITALS: BP 121/78; PULSE 77; RESP 16; TEMP 98.3; O2SAT 97
[2018-04-23 00:41] VITALS: BP 151/100; PULSE 77; RESP 18; TEMP 97.8; O2SAT 97
[2018-04-23 06:16] VITALS: BP 146/78; PULSE 80; RESP 15; TEMP 97.6; O2SAT 97
[2018-04-23 07:38] VITALS: BP 140/70; PULSE 76; RESP 18; TEMP 97.6; O2SAT 96
[2018-04-23] MEDS: LEVOTHYROXINE SODIUM 75 MCG TAB PO SCH (07:40)
[2018-04-23 07:42] VITALS: BP 183/76; PULSE 83; O2SAT 98
[2018-04-23 07:43] VITALS: BP 161/72; PULSE 93; O2SAT 95
[2018-04-23] MEDS ORDERED: CHLORHEXIDINE GLUCONATE 2 % 1 PACK (2 CLOTHS) TOPICAL SCH (09:15)
[2018-04-23] MEDS ORDERED: MUPIROCIN 2% OINT 1 APPLIC/GM SYR NASAL SCH (09:15)
[2018-04-23] MEDS ORDERED: POVIDONE IODINE 5% (ANTISEPSIS KIT) 4 APPLICATIONS EACH NARE SCH (09:15)
--- NOTE | 2018-04-23 09:35 | PD.CARD.PN ---
Subjective Subjective Remarks no complaints Objective Medications Current Medications Medications (Trade) Dose Ordered Sig/Kirit Route Start Time Stop Time Status Last Admin Sodium Chloride 1,000 ml @ 100 mls/hr Q10H IV 04/20/18 01:00 04/21/18 17:24 (Nitrostat Sl) 0.4 mg Q5M PRN SL 04/20/18 04:45 (Tylenol) 500 mg Q4H PRN PO 04/20/18 07:45 04/22/18 21:51 (Aspirin) 325 mg DAILY PO 04/20/18 09:00 04/22/18 09:22 (Zofran Odt) 4 mg Q6H PRN PO 04/20/18 07:45 (NS Flush) 2 ml UNSCH PRN IV FLUSH 04/20/18 12:30 (NS Flush) 2 ml BID IV FLUSH 04/20/18 21:00 04/22/18 21:51 (Synthroid) 75 mcg DAILY@0600 PO 04/21/18 06:00 04/23/18 07:40 (Desyrel) 50 mg BID PO 04/20/18 21:00 04/22/18 21:50 (Vasotec) 10 mg BID PO 04/21/18 09:00 04/22/18 09:20 (Protonix) 40 mg DAILY PO 04/21/18 14:00 04/22/18 09:21 (Betadine 5% Antisepsis Kit) 2 applic ZIPPER SETTER EACH NARE 04/23/18 09:15 04/26/18 09:14 (Bactroban Nasal 2% Oint) 1 applic ZIPPER SETTER NASAL 04/23/18 09:15 04/26/18 09:14 (Chlorhexidine 2% Cloth) 3 pack ZIPPER SETTER TOPICAL 04/23/18 09:15 04/26/18 09:14 Vital Signs / I&O Vital Signs Date Time Temp Pulse Resp B/P (MAP) Pulse Ox O2 Delivery O2 Flow Rate FiO2 04/23/18 07:43 93 161/72 (101) 95 04/23/18 07:42 83 183/76 (111) 98 04/23/18 07:38 97.6 76 18 140/70 (93) 96 04/23/18 06:16 97.6 80 15 146/78 (100) 97 04/23/18 00:41 97.8 77 18 151/100 (117) 97 04/22/18 21:43 98.3 77 16 121/78 (92) 97 04/22/18 17:16 98.6 68 18 104/60 (75) 98 04/22/18 13:05 97 21 04/22/18 11:11 141/67 (91) 139/69 (92) 135/66 (89) Physical Exam Alert Chest clear CV S1S2 RRR no edema tele no arrythmia Assessment and Plan Problem List: (1) Syncope ICD Codes: R55 - Syncope and collapse Plan: insertable loop recorder. F/U as OP Peter Bryan MD Apr 23, 2018 09:35
--- NOTE | 2018-04-23 09:37 | MR ---
cc: Peter Bryan MD DATE: 04/23/2018 PREOPERATIVE DIAGNOSIS: Repetitive episodes of syncope with a fall, unrevealing workup. POSTOPERATIVE DIAGNOSIS: Repetitive episodes of syncope with a fall, unrevealing workup. PROCEDURE PERFORMED: Insertion of insertable loop recorder. DESCRIPTION OF PROCEDURE: Informed consent was obtained from the patient. The patient was prepped and draped in sterile fashion. In the left fourth intercostal space, using the [employer] insertion kit an insertable loop recorder was inserted with an R-wave of 0.55 millivolts. 1% lidocaine was used. Steri-Strips were applied. There were no complications. This is a [employer] Reveal LINQ, model LNQ11, serial number [id number]. The patient will be followed up in the office. Peter Bryan MD VEW/TL , 09:27 AM , 09:35 AM
--- NOTE | 2018-04-23 10:03 | HHI.DS ---
cc: Serjio Ferrera MD Discharge Summary Admission Date Apr 20, 2018 at 4:35 am Discharge Date: Apr 23, 2018 Admitting Diagnosis syncope, chest pain (1) Syncope ICD Code: R55 - Syncope and collapse Diagnosis: Principal (2) Acute kidney injury ICD Code: N17.9 - Acute kidney failure, unspecified Diagnosis: Secondary (3) Hypokalemia ICD Code: E87.6 - Hypokalemia Diagnosis: Secondary (4) Atypical chest pain ICD Code: R07.89 - Other chest pain Diagnosis: Secondary Status: Acute Procedures 04/23/18 - Loop Recorder placement by Dr. Bryan Brief History - From Admission The patient is a 72-year-old female who was initially admitted to the chest pain center. She presented to the emergency department with complaint of sharp left-sided chest pain last night. No chest pain currently. ACS ruled out with serial cardiac enzymes and EKGs. Patient has had multiple syncopal episodes over the past few months, including one last night while sitting on the floor playing with her cat. She denies lightheadedness or dizziness at this time. She denies palpitations. She had been referred to cardiology by her PCP for syncope workup as she was found to have right bundle branch block on outpatient EKG. She has not yet seen cardiology; her appointment is scheduled for Monday with Dr. Ferrera. CBC/BMP: 04/20/18 0300 04/21/18 0650 Significant Findings Laboratory Tests Test 04/21/18 06:50 Calcium Level 8.0 MG/DL (8.5-10.1) Estimat Glomerular Filtration Rate 59 ML/MIN (>89) Triglycerides Level 156 MG/DL (42-150) Cholesterol Level 118 MG/DL (120-200) HDL Cholesterol 33.5 MG/DL (40.0-60.0) Imaging Last Impressions Myocardial Perfusion Scan Nuc Med 04/21/18 0000 Signed Impressions: CONCLUSION: 1. No evidence of fixed or reversible perfusion defect. Normal wall motion wit h normal ejection fraction. Chest X-Ray 04/20/18 0049 Signed Impressions: CONCLUSION: No active disease. Tortuous aorta. Carotid Artery Ultrasound 04/20/18 0000 Signed Impressions: CONCLUSION: 1. Right Internal Carotid Artery: Findings indicate <50% stenosis. 2. Left Internal Carotid Artery: Findings indicate <50% stenosis. PE at Discharge GENERAL: Well-nourished, well-developed elderly female patient in [facility]. Ambulating the unit without difficulty. SKIN: Warm and dry. No rash. HEENT: Normocephalic. Atraumatic. Pupils equal and round. Mucous membranes pink and moist. CARDIOVASCULAR: Regular rate and rhythm. No murmur appreciated. RESPIRATORY: No accessory muscle use. Clear to auscultation. Breath sounds equal bilaterally. GASTROINTESTINAL: Abdomen soft, non-tender, nondistended. Normoactive bowel sounds x4. MUSCULOSKELETAL: No obvious deformities. Extremities without clubbing, cyanosis , or edema. NEUROLOGICAL: Awake and alert. No obvious cranial nerve deficits. Motor grossly within normal limits. Moving all extremities spontaneously. Normal speech. PSYCHIATRIC: Appropriate mood and affect; insight and judgment normal. Pt update on day of discharge Follow-up for syncope. Patient reports again feeling better today. She is ambulating the unit without difficulty. She reports only 1-2 seconds of lightheadedness initially upon standing, then goes away on its own. Denies any chest pain, palpitations, shortness of breath. She is having loop recorder placed today. She wants to go home. Hospital Course 72-year-old female with history of hypertension, diet-controlled diabetes, hypothyroidism, GERD, presents with chest pain and syncopal episodes Syncope/Atypical Chest pain: Unclear etiology, patient reporting multiple sudden syncopal episodes over the past few months. Possibly secondary to dehydration. Rule out cardiomyopathy, ACS, arrhythmia. EMR reviewed, head CT 2 in 2016 unremarkable. Orthostatic blood pressures negative. Given IVF hydration for MARYJANE. ACS ruled out with negative serial cardiac enzymes and EKG without acute ischemic changes. Monitor on telemetry, no arrhythmias. Nuclear stress test unremarkable. Consulted cardiology, Dr. Bryan placed loop recorder prior to discharge on 04/23. Echocardiogram normal with EF 60-65%, mild TR, mild MR. Symptoms much improved, patient ambulating the unit without any difficulty. Patient cleared for discharge by cardiology. She has an appointment arranged with director database Dr. Ferrera tomorrow 04/24. Hypertension: Chronic, patient reports she was previously on enalapril but this was stopped in August due to her symptoms. Cardiology restarted enalapril at lower dose of 10 mg bid. BP well controlled and orthostatic vital signs negative. Diet-controlled diabetes mellitus: Chronic. Monitor Accu-Cheks and cover with sliding scale insulin. BG stable. MARYJANE on CKD stage III: Creatinine 1.2 upon arrival, likely secondary to dehydration. Given IV fluid hydration. Avoid nephrotoxins. Repeat BMP shows improvement, creatinine 0.93. Pt Condition on Discharge: Stable Discharge Disposition: Discharge Home Discharge Time: <= 30 minutes Discharge Instructions DIET: Follow Instructions for: Heart Healthy Diet Activities you can perform: Regular-No Restrictions Follow up Referrals: Cardiology - 04/24/18 with Serjio Ferrera MD PCP Follow-up - 2-3 Days New Medications: Enalapril (Enalapril) 10 Mg Tab 10 MG PO BID for Blood Pressure Management for 30 Days, #60 TAB Continued Medications: Levothyroxine (Levothyroxine) 75 Mcg Tab 75 MCG PO DAILY for Thyroid, #30 TAB 0 Refills Trazodone (Trazodone) 50 Mg Tab 50 MG PO BID for Control Depression, #30 TAB 0 Refills Discontinued Medications: Enalapril (Enalapril) 20 Mg Tab 40 MG PO DAILY, #30 TAB 0 Refills Marisol Saravia PA-C Apr 23, 2018 10:03 am
== END 2018-04-23 11:40 | disposition home or self-care (01) ==
LOC: NEPC 00:27 → NEDA 04:35 → NEPGCP 06:08
PROVIDERS: ADMIT Family Medicine; ATTEND Family Medicine
DX: R55 Syncope and collapse (principal); N17.9 Acute kidney failure, unspecified; E86.0 Dehydration; E87.6 Hypokalemia; R07.89 Other chest pain; I12.9 Hypertensive chronic kidney disease with stage 1 through stage 4 chronic kidney disease, or unspecified chronic kidney disease; N18.3 Chronic kidney disease, stage 3 (moderate); E11.22 Type 2 diabetes mellitus with diabetic chronic kidney disease; E78.5 Hyperlipidemia, unspecified; E03.9 Hypothyroidism, unspecified; R06.02 Shortness of breath; R94.31 Abnormal electrocardiogram [ECG] [EKG]
CPT/HCPCS: 33282; 71046; 78452; 80048; 80061; 82550; 83735; 84443; 84484; 85025; 85379; 85610; 85730; 93005; 93017; 93306; 93880; 96360; 96361; 96374; 99285; A9502; C1764; G0378; J2270; J2785; J7030